=== PATIENT | female | born 1945 | race Hispanic/Latino ===

== ENCOUNTER 2017-09-22 15:53 | Inpatient (IN) | payer OTHER, BC ==
[2017-09-22 16:06] VITALS: BMI 50.3
[2017-09-22] MEDS ORDERED: Enoxaparin 30 mg Syringe SC SCH (16:15)
[2017-09-22] MEDS: Nystatin 100,000 Units/gm Topical Pow(15 gm) TOP SCH (17:59)
[2017-09-22] MEDS: Enoxaparin 30 mg Syringe SC SCH (18:00)
[2017-09-22] MEDS: ceFAZolin 1 gm in NS 1 GM/100 ML BAG IVPB SCH (21:23)
[2017-09-22] MEDS ORDERED: Pneumococcal 23-Valent Vaccine IM ONE (22:20)
[2017-09-23] MEDS: ceFAZolin 1 gm in NS 1 GM/100 ML BAG IVPB SCH (05:35)
[2017-09-23] MEDS: Enoxaparin 30 mg Syringe SC SCH ×2 (05:35→17:59)
[2017-09-23] MEDS: Pantoprazole 40 mg EC Tab PO SCH (05:36)
[2017-09-23 06:33] LABS: BASO # 0.03 K/mm3 (0.0-2.0); BASO % 0.7 % (0.0-3.0); EOS # 0.1 (0.0-0.7); EOS % 3.3 % (1.5-5.0); GRAN # 2.55 (1.4-6.5); GRAN % 60.1 % (50.0-68.0); HEMOGLOBIN 10.7 g/dL (12.0-16.0); LYMPH % 22.9 % (22.0-35.0); MEAN CELL VOLUME 99.2 fl (80.0-105.0); MEAN CORPUSCULAR HGB CONC 30.2 g/dl (31.0-37.0); MEAN PLATELET VOLUME 10.3 fl (7.0-11.0); MONO # 0.6 (0.1-0.6); RBC 3.57 10^6/uL (3.5-6.1); RED CELL DISTRIBUTION WIDTH 15.3 % (11.5-14.5); WHITE BLOOD COUNT 4.2 10^3/ul (4.5-11.0)
[2017-09-23 07:15] LABS: ALB/GLOB RATIO 1.1 (1.1-1.8); ALBUMIN 2.8 g/dL (3.0-4.8); ALT/SGPT 17 U/L (7-56); AST/SGOT 19 U/L (14-36); BLOOD UREA NITROGEN 13 mg/dL (7-21); CALCIUM 8.3 mg/dL (8.4-10.5); GFR AFRICAN-AMERICAN > 60; GFR NON-AFRICAN AMERICAN > 60
[2017-09-23 07:29] LABS: INR 1.24 (0.93-1.08); PROTHROMBIN TIME 14.3 SECONDS (9.4-12.5)
--- NOTE | 2017-09-23 07:41 | CP.PCM.CON ---
History of Present Illness - History of Present Illness History of Present Illness: Awake, alert, lying in bed,no distress Reason for consultation: Continuity of care in TCU, admitted due to abdominal wound dehiscence post hysterectomy and found to have new onset atrial fibrillation, hypertension Brief History of present illness: A 72 year old female, obese who came in to the ER due to abdominal wound dehiscence post hysterectomy and found to have new onset atrial fibrillation. Patient had hysterectomy at [facility] on 09/06/17. On 09/16/17, harmony were removed. On 09/19/17, she came in to the ER due to bleeding at surgical wound and found to have wound dehiscence. Patient underwent wound debridement and closure at [facility]. Atrial fibrillation was controlled with IV cardizem then switch to oral cardizem and amiodarone. She was also started with Coumadin.Afib converted to normal sinus rhythm. History of hypertension.Transferred to TCU for reconditioning and rehab. Seen and examined by me and Dr. Bernabe Review of Systems - Constitutional Constitutional: As Per HPI - Cardiovascular Additional comments: denies chest pain, hypertension - Respiratory Additional comments: denies shortness of breath - Genitourinary Additional comments: denies problems - Neurological Additional comments: denies problems - Endocrine Endocrine: As Per HPI Past Patient History - Past Social History Smoking Status: Former Smoker - CARDIAC Hx Cardiac Disorders: Yes Hx Hypertension: Yes Hx Pacemaker: No Hx Peripheral Edema: Yes (ble +2 pitting legs and feet) Other/Comment: spider veins to feet - PULMONARY Hx Respiratory Disorders: No - NEUROLOGICAL Hx Neurological Disorder: No - HEENT Hx HEENT Problems: No - RENAL Hx Chronic Kidney Disease: No - ENDOCRINE/METABOLIC Hx Endocrine Disorders: No - HEMATOLOGICAL/ONCOLOGICAL Hx Blood Disorders: No - INTEGUMENTARY Hx Dermatological Problems: Yes Other/Comment: right lower abd wound dehiscence repaired today post surgical wound had hyst at [facility] 09/06/17, had harmony removed 09/16/17 , c/o bleeding started yesterday, to or for wound repair surgical dressing and abd binder in place - MUSCULOSKELETAL/RHEUMATOLOGICAL Hx Falls: No - GASTROINTESTINAL Hx Gastrointestinal Disorders: No - GENITOURINARY/GYNECOLOGICAL Hx Genitourinary Disorders: No Hx Reproductive Disorders: No - PSYCHIATRIC Hx Substance Use: No - SURGICAL HISTORY Hx Surgeries: Yes Hx Hysterectomy: Yes (7/3/18 [facility] Other/Comment: harmony removed from hyst that was done on 09/06/17, on 09/16/17, site started bleeding yesterday 09/18/17 repair of post surgical wound done today 09/19/17 - ANESTHESIA Hx Anesthesia Reactions: No Hx Malignant Hyperthermia: No Meds Allergies/Adverse Reactions: Allergies Allergy/AdvReac Type Severity Reaction Status Date / Time No Known Allergies Allergy Verified 09/22/17 16:07 - Medications Medications: Current Medications Acetaminophen (Tylenol 325mg Tab) 650 mg PO Q6H PRN PRN Reason: temp 101 Amiodarone HCl (Cordarone) 200 mg PO DAILY [facility] Diltiazem HCl (Cardizem Cd) 240 mg PO DAILY [facility] Diphenhydramine HCl (Benadryl) 25 mg PO HS PRN PRN Reason: Insomnia Docusate Sodium (Colace) 100 mg PO DAILY [facility] Enoxaparin Sodium (Lovenox) 30 mg SC 0600,1800 [facility] PRN Reason: Protocol Last Admin: 09/23/17 05:35 Dose: 30 mg Cefazolin Sodium (Ancef 1gm In Ns) 1 gm in 100 mls @ 100 mls/hr IVPB Q8 [facility] PRN Reason: Protocol Last Admin: 09/23/17 05:35 Dose: 100 mls/hr Ibuprofen (Motrin Tab) 600 mg PO Q6H PRN PRN Reason: abdominal pain Lisinopril (Zestril) 10 mg PO DAILY [facility] Nystatin (Nystop Topical Powder) 0 gm TOP BID [facility] Last Admin: 09/22/17 17:59 Dose: 1 applic Ondansetron HCl (Zofran Inj) 4 mg IVP Q6H PRN PRN Reason: Nausea/Vomiting Pantoprazole Sodium (Protonix Ec Tab) 40 mg PO 0600 [facility] Last Admin: 09/23/17 05:36 Dose: 40 mg Physical Exam - Constitutional Appears: No Acute Distress - Head Exam Head Exam: NORMOCEPHALIC - Eye Exam Eye Exam: Normal appearance - ENT Exam ENT Exam: Mucous Membranes Moist - Respiratory Exam Respiratory Exam: Clear to Auscultation Bilateral, NORMAL BREATHING PATTERN - Cardiovascular Exam Cardiovascular Exam: REGULAR RHYTHM, +S1, +S2 - GI/Abdominal Exam GI & Abdominal Exam: Normal Bowel Sounds, Soft Additional comments: abdominal dressing intact - Extremities Exam Additional comments: 2+ pedal edema - Neurological Exam Neurological exam: Alert, Oriented x3 - Psychiatric Exam Psychiatric exam: Normal Affect - Skin Skin Exam: Intact, Warm Results - Vital Signs Recent Vital Signs: Last Vital Signs Temp 98.2 F 09/22/17 22:11 Pulse 73 09/22/17 22:11 Resp 91 H 09/22/17 22:11 BP 144/59 L 09/22/17 22:11 Pulse Ox 91 L 09/22/17 16:00 - Labs Result Diagrams: 09/23/17 05:45 09/23/17 05:45 Labs: Laboratory Results - last 24 hr 09/23/17 09/23/17 09/23/17 05:45 05:45 06:30 WBC 4.2 L D RBC 3.57 Hgb 10.7 L Hct 35.4 L MCV 99.2 MCH 30.0 MCHC 30.2 L RDW 15.3 H Plt Count 261 MPV 10.3 Gran % 60.1 Lymph % (Auto) 22.9 [place] % (Auto) 13.0 H Eos % (Auto) 3.3 Baso % (Auto) 0.7 Gran # 2.55 Lymph # (Auto) 1.0 L [place] # (Auto) 0.6 Eos # (Auto) 0.1 Baso # (Auto) 0.03 PT 14.3 H INR 1.24 H Sodium 140 Potassium 4.3 Chloride 102 Carbon Dioxide 32 Anion Gap 10 BUN 13 Creatinine 0.6 L Est GFR ( Amer) > 60 Est GFR (Non-Af Amer) > 60 Random Glucose 102 Calcium 8.3 L Phosphorus 3.5 Magnesium 2.1 Total Bilirubin 0.4 AST 19 ALT 17 Alkaline Phosphatase 61 Total Protein 5.2 L Albumin 2.8 L Globulin 2.5 Albumin/Globulin Ratio 1.1 Assessment & Plan - Assessment and Plan (Free Text) Assessment: Brief History of present illness: A 72 year old female, obese who came in to the ER due to abdominal wound dehiscence post hysterectomy and found to have new onset atrial fibrillation. Patient had hysterectomy at [facility] on 09/06/17. On 09/16/17, harmony were removed. On 09/19/17, she came in to the ER due to bleeding at surgical wound and found to have wound dehiscence. Patient underwent wound debridement and closure at [facility]. Atrial fibrillation was controlled with IV cardizem then switch to oral cardizem and amiodarone. She was also started with Coumadin.Afib converted to normal sinus rhythm. History of hypertension.Transferred to TCU for reconditioning and rehab. Recent ECHO- normal LVEF 65% Plan: In TCU for reconditioning and physical therapy Cardiac status stable Blood pressure and heart rate stable Continue amiodarone and cardizem,lisinopril discontinued coumadin Repeat EKG to check cardiac rhythm, making sure remains normal sinus Continue current treatment Continue current medications Will follow up Plan and treatment discussed with Dr. Bernabe Thank you Dr. Arechiga for the opportunity in taking care of . Sumit Vidal
--- NOTE | 2017-09-23 08:44 | CP.PCM.PN ---
Subjective - Date & Time of Evaluation Date of Evaluation: 09/23/17 Time of Evaluation: 08:43 - Subjective Subjective: GENERAL SURGERY PROGRESS NOTE FOR DR. HAN Patient seen and examined at bedside this am in TCU. No acute events overnight. Pt continues to have mild pain at incision site. She is not wearing abdominal binders due to discomfort. Pt tolerating diet, passing gas, normal bowel function. Denies fevers, chills, chest pain, SOB, nausea, vomiting or diarrhea. Objective - Vital Signs/Intake and Output Vital Signs (last 24 hours): Temp Pulse Resp BP Pulse Ox 98.2 F 73 91 H 144/59 L 91 L 09/22/17 22:11 09/22/17 22:11 09/22/17 22:11 09/22/17 22:11 09/22/17 16:00 - Medications Medications: Current Medications Acetaminophen (Tylenol 325mg Tab) 650 mg PO Q6H PRN PRN Reason: temp 101 Amiodarone HCl (Cordarone) 200 mg PO DAILY [facility] Diltiazem HCl (Cardizem Cd) 240 mg PO DAILY [facility] Diphenhydramine HCl (Benadryl) 25 mg PO HS PRN PRN Reason: Insomnia Docusate Sodium (Colace) 100 mg PO DAILY [facility] Enoxaparin Sodium (Lovenox) 30 mg SC 0600,1800 [facility] PRN Reason: Protocol Last Admin: 09/23/17 05:35 Dose: 30 mg Cefazolin Sodium (Ancef 1gm In Ns) 1 gm in 100 mls @ 100 mls/hr IVPB Q8 [facility] PRN Reason: Protocol Last Admin: 09/23/17 05:35 Dose: 100 mls/hr Ibuprofen (Motrin Tab) 600 mg PO Q6H PRN PRN Reason: abdominal pain Lisinopril (Zestril) 10 mg PO DAILY [facility] Nystatin (Nystop Topical Powder) 0 gm TOP BID [facility] Last Admin: 09/22/17 17:59 Dose: 1 applic Ondansetron HCl (Zofran Inj) 4 mg IVP Q6H PRN PRN Reason: Nausea/Vomiting Pantoprazole Sodium (Protonix Ec Tab) 40 mg PO 0600 [facility] Last Admin: 09/23/17 05:36 Dose: 40 mg - Labs Labs: 09/23/17 05:45 09/23/17 05:45 PT 14.3 SECONDS (9.4-12.5) H 09/23/17 06:30 INR 1.24 (0.93-1.08) H 09/23/17 06:30 - Constitutional Appears: Well, Non-toxic, No Acute Distress - Head Exam Head Exam: NORMAL INSPECTION - ENT Exam ENT Exam: Mucous Membranes Moist - Respiratory Exam Respiratory Exam: NORMAL BREATHING PATTERN - Cardiovascular Exam Cardiovascular Exam: RRR - GI/Abdominal Exam GI & Abdominal Exam: Soft, Tenderness (mild tenderness to palpation around incision site). absent: Distended, Firm, Rigid, Rebound Additional comments: Mild erythema around incision site that's improved since hospital admission. Dressing saturated with malodorous serous fluid. Wound is well approximated. no signs of overt bleeding. - Extremities Exam Extremities Exam: Normal Inspection. absent: Calf Tenderness - Neurological Exam Neurological Exam: Alert, Awake, Oriented x3 - Psychiatric Exam Psychiatric exam: Normal Affect, Normal Mood - Skin Skin Exam: Normal Color, Warm Assessment and Plan - Assessment and Plan (Free Text) Assessment: 72 y/o F POD#4 s/p hysterectomy wound debridement and washout with primary closure Plan: - saul drain fell out - Repeat wound culture grew pseudomonas. Pt on abx per ID recs - CT abdomen w/ po contrast upon discharge. Monitor for wound dehiscence and infection/abscesses - continue PT in TCU, continue ID & surgical monitoring - encourage ambulation as tolerated with abdominal binders - continue DVT prophylaxis - continue incentive spirometry - discussed with Dr. Han
[2017-09-23] MEDS ORDERED: Barium Sulfate Susp 2.1% w/v, 2.0% w/w 450 mL Bottle PO ONE (08:53)
[2017-09-23] MEDS: diltiaZEM 240 mg/24 Hours CD Cap PO SCH (10:17)
[2017-09-23] MEDS: Nystatin 100,000 Units/gm Topical Pow(15 gm) TOP SCH ×2 (10:18→17:59)
--- NOTE | 2017-09-23 10:20 | CARD ---
APPROVED REPORT Date of service: 09/23/2017 EKG Measurement Heart [id number] <Conclusion> Normal sinus rhythm Normal ECG
[2017-09-23] MEDS: Silver Sulfadiazine 1% Cream (25 gm) TP SCH ×2 (11:15→11:21)
[2017-09-23] MEDS: Linezolid 600 mg in D5W 300 ml 600 MG/300 ML BAG IVPB SCH ×2 (13:29→21:01)
[2017-09-23] MEDS: Cefepime IV 2 gm in NS 2 GM/100 ML BAG IVPB SCH ×2 (13:30→21:02)
--- NOTE | 2017-09-23 14:10 | CP.PCM.CON ---
History of Present Illness - History of Present Illness History of Present Illness: 72 year old female with PMH of right breast papilloma, HTN, obesity with BMI 35 was initially admitted in [facility] because of hysterectomy surgical site skin and skin structure infection. Debridement was done and she was started on antibiotics. She is now transferred to [facility] for continued medical therapy and physical rehab. Infectious diseases consult is requested to continue her antibiotic therapy. She still has some pain in the surgical site but a little less, no fever or chills, no nausea or vomiting, no chest pain, no SOB, no cough or rhinorrhea, no diarrhea, no dysuria. Review of Systems - Review of Systems All systems: reviewed and no additional remarkable complaints except (as per HPI ) Past Patient History - Past Social History Smoking Status: Former Smoker - CARDIAC Hx Cardiac Disorders: Yes Hx Hypertension: Yes Hx Pacemaker: No Hx Peripheral Edema: Yes (ble +2 pitting legs and feet) Other/Comment: spider veins to feet - PULMONARY Hx Respiratory Disorders: No - NEUROLOGICAL Hx Neurological Disorder: No - HEENT Hx HEENT Problems: No - RENAL Hx Chronic Kidney Disease: No - ENDOCRINE/METABOLIC Hx Endocrine Disorders: No - HEMATOLOGICAL/ONCOLOGICAL Hx Blood Disorders: No - INTEGUMENTARY Hx Dermatological Problems: Yes Other/Comment: right lower abd wound dehiscence repaired today post surgical wound had hyst at [facility] 09/06/17, had harmony removed 09/16/17 , c/o bleeding started yesterday, to or for wound repair surgical dressing and abd binder in place - MUSCULOSKELETAL/RHEUMATOLOGICAL Hx Falls: No - GASTROINTESTINAL Hx Gastrointestinal Disorders: No - GENITOURINARY/GYNECOLOGICAL Hx Genitourinary Disorders: No Hx Reproductive Disorders: No - PSYCHIATRIC Hx Substance Use: No - SURGICAL HISTORY Hx Surgeries: Yes Hx Hysterectomy: Yes (09/06/17 [facility]) Other/Comment: harmony removed from hyst that was done on 09/06/17, on 09/16/17, site started bleeding yesterday 09/18/17 repair of post surgical wound done today 09/19/17 - ANESTHESIA Hx Anesthesia Reactions: No Hx Malignant Hyperthermia: No Meds Allergies/Adverse Reactions: Allergies Allergy/AdvReac Type Severity Reaction Status Date / Time No Known Allergies Allergy Verified 09/22/17 16:07 - Medications Medications: Current Medications Acetaminophen (Tylenol 325mg Tab) 650 mg PO Q6H PRN PRN Reason: temp 101 Amiodarone HCl (Cordarone) 200 mg PO DAILY [facility] Diltiazem HCl (Cardizem Cd) 240 mg PO DAILY [facility] Diphenhydramine HCl (Benadryl) 25 mg PO HS PRN PRN Reason: Insomnia Docusate Sodium (Colace) 100 mg PO DAILY [facility] Enoxaparin Sodium (Lovenox) 30 mg SC 0600,1800 [facility] PRN Reason: Protocol Last Admin: 09/23/17 05:35 Dose: 30 mg Cefazolin Sodium (Ancef 1gm In Ns) 1 gm in 100 mls @ 100 mls/hr IVPB Q8 [facility] PRN Reason: Protocol Last Admin: 09/23/17 05:35 Dose: 100 mls/hr Ibuprofen (Motrin Tab) 600 mg PO Q6H PRN PRN Reason: abdominal pain Lisinopril (Zestril) 10 mg PO DAILY [facility] Nystatin (Nystop Topical Powder) 0 gm TOP BID [facility] Last Admin: 09/22/17 17:59 Dose: 1 applic Ondansetron HCl (Zofran Inj) 4 mg IVP Q6H PRN PRN Reason: Nausea/Vomiting Pantoprazole Sodium (Protonix Ec Tab) 40 mg PO 0600 [facility] Last Admin: 09/23/17 05:36 Dose: 40 mg Physical Exam - Constitutional Appears: Chronically Ill - Head Exam Head Exam: NORMAL INSPECTION - ENT Exam ENT Exam: Mucous Membranes Moist - Respiratory Exam Respiratory Exam: Decreased Breath Sounds - Cardiovascular Exam Cardiovascular Exam: +S1, +S2 - GI/Abdominal Exam GI & Abdominal Exam: Soft, Tenderness (mild, surgical site in the lower abdomen with dry dressings in place) Results - Vital Signs Recent Vital Signs: Last Vital Signs Temp 98.2 F 09/22/17 22:11 Pulse 73 09/22/17 22:11 Resp 91 H 09/22/17 22:11 BP 144/59 L 09/22/17 22:11 Pulse Ox 91 L 09/22/17 16:00 - Labs Result Diagrams: 09/23/17 05:45 09/23/17 05:45 Assessment & Plan - Assessment and Plan (Free Text) Plan: Assessment Consider surgical site skin and skin structure infection S/P debridement and closure of the surgical site in this patient S/P hysterectomy, initially grew MSSA and rivera-sensitive Proteus but is now also growing Pseudomonas right breast papilloma HTN obesity with BMI [address] Oscar - had some purulent material and wound edges are still erythematous - switched antibiotics to Zyvox and Cefepime and will monitor clinically
[2017-09-24] MEDS: Enoxaparin 30 mg Syringe SC SCH ×2 (05:22→17:39)
[2017-09-24] MEDS: Cefepime IV 2 gm in NS 2 GM/100 ML BAG IVPB SCH ×3 (05:22→21:19)
[2017-09-24 08:53] LABS: BASO # 0.02 K/mm3 (0.0-2.0); BASO % 0.5 % (0.0-3.0); EOS # 0.1 (0.0-0.7); EOS % 2.6 % (1.5-5.0); GRAN # 2.59 (1.4-6.5); GRAN % 60.7 % (50.0-68.0); HEMOGLOBIN 11.3 g/dL (12.0-16.0); LYMPH % 23.5 % (22.0-35.0); MEAN CELL VOLUME 96.8 fl (80.0-105.0); MEAN PLATELET VOLUME 10.2 fl (7.0-11.0); MONO # 0.5 (0.1-0.6); MONO % 12.7 % (1.0-6.0); RBC 3.77 10^6/uL (3.5-6.1); RED CELL DISTRIBUTION WIDTH 15.2 % (11.5-14.5); WHITE BLOOD COUNT 4.3 10^3/ul (4.5-11.0)
--- NOTE | 2017-09-24 08:57 | CP.PCM.PN ---
Subjective - Date & Time of Evaluation Date of Evaluation: 09/24/17 Time of Evaluation: 07:30 - Subjective Subjective: Patient seen and examined at bedside this AM. No adverse events overnight. Patient is anxious about the wound not healing and complains about some soreness but denies any fevers, chills, nausea or vomiting. Objective - Vital Signs/Intake and Output Vital Signs (last 24 hours): Temp Pulse Resp BP Pulse Ox 98.5 F 71 20 124/78 94 L 09/24/17 06:00 09/24/17 06:00 09/24/17 06:00 09/24/17 06:00 09/24/17 06:00 - Medications Medications: Current Medications Acetaminophen (Tylenol 325mg Tab) 650 mg PO Q6H PRN PRN Reason: temp 101 Amiodarone HCl (Cordarone) 200 mg PO DAILY [facility] Last Admin: 09/23/17 10:18 Dose: 200 mg Diltiazem HCl (Cardizem Cd) 240 mg PO DAILY [facility] Last Admin: 09/23/17 10:17 Dose: 240 mg Diphenhydramine HCl (Benadryl) 25 mg PO HS PRN PRN Reason: Insomnia Docusate Sodium (Colace) 100 mg PO DAILY [facility] Last Admin: 09/23/17 10:17 Dose: 100 mg Enoxaparin Sodium (Lovenox) 30 mg SC 0600,1800 [facility] PRN Reason: Protocol Last Admin: 09/24/17 05:22 Dose: 30 mg Linezolid (Zyvox 600mg/300ml D5w) 600 mg in 300 mls @ 200 mls/hr IVPB Q12 [facility] PRN Reason: Protocol Stop: 09/30/17 11:16 Last Admin: 09/23/17 21:01 Dose: 200 mls/hr Cefepime HCl (Maxipime 2gm) 2 gm in 100 mls @ 100 mls/hr IVPB Q8 [facility] PRN Reason: Protocol Stop: 09/28/17 14:01 Last Admin: 09/24/17 05:22 Dose: 100 mls/hr Ibuprofen (Motrin Tab) 600 mg PO Q6H PRN PRN Reason: abdominal pain Lisinopril (Zestril) 10 mg PO DAILY [facility] Last Admin: 09/23/17 10:18 Dose: 10 mg Nystatin (Nystop Topical Powder) 0 gm TOP BID [facility] Last Admin: 09/23/17 17:59 Dose: 1 applic Ondansetron HCl (Zofran Inj) 4 mg IVP Q6H PRN PRN Reason: Nausea/Vomiting Pantoprazole Sodium (Protonix Ec Tab) 40 mg PO 0600 [facility] Last Admin: 09/23/17 05:36 Dose: 40 mg Silver Sulfadiazine (Silvadene 1% 25 Gm) 0 gm TP DAILY [facility] Last Admin: 09/23/17 11:21 Dose: Not Given - Labs Labs: 09/23/17 05:45 09/23/17 05:45 PT 14.3 SECONDS (9.4-12.5) H 09/23/17 06:30 INR 1.24 (0.93-1.08) H 09/23/17 06:30 - Constitutional Appears: Well, Non-toxic, No Acute Distress - Head Exam Head Exam: ATRAUMATIC, NORMOCEPHALIC - Eye Exam Eye Exam: Normal appearance. absent: Conjunctival injection, Scleral icterus - ENT Exam ENT Exam: Mucous Membranes Moist, Normal Oropharynx - Respiratory Exam Respiratory Exam: NORMAL BREATHING PATTERN. absent: Accessory Muscle Use, Respiratory Distress - Cardiovascular Exam Cardiovascular Exam: RRR - GI/Abdominal Exam GI & Abdominal Exam: Soft, Tenderness (per-incisional). absent: Distended Additional comments: inision well approximated with retention sutures and harmony, saul removed yesterday, skin edges not well healed, moderate amount of thick serosanguinous fluid. - Extremities Exam Extremities Exam: Pedal Edema. absent: Calf Tenderness, Tenderness - Neurological Exam Neurological Exam: Alert, Awake, Oriented x3 - Psychiatric Exam Psychiatric exam: Anxious, Normal Affect - Skin Skin Exam: Dry, Normal Color, Warm Assessment and Plan - Assessment and Plan (Free Text) Assessment: 72F POD#5 s/p wash out and primary closure of hysterectomy surgical wound Plan: Continue IV antibiotics per ID recs Continue to trend CBC Continue to monitor wound closely Daily wound dressing changes with silvadene cream on the skin PRN pain medication Encourage ambulation will Discuss with Dr. Oscar,, further recs per him April Walsh, PGY2
[2017-09-24 09:03] LABS: INR 1.1 (0.93-1.08); PROTHROMBIN TIME 12.7 SECONDS (9.4-12.5)
[2017-09-24 09:06] LABS: ALB/GLOB RATIO 1.1 (1.1-1.8); ALBUMIN 3.2 g/dL (3.0-4.8); ALT/SGPT 25 U/L (7-56); AST/SGOT 30 U/L (14-36); BLOOD UREA NITROGEN 11 mg/dL (7-21); CALCIUM 8.5 mg/dL (8.4-10.5); GFR AFRICAN-AMERICAN > 60; GFR NON-AFRICAN AMERICAN > 60
--- NOTE | 2017-09-24 09:22 | PN ---
DATE: 09/24/2017 SUBJECTIVE: The patient is seen in room 303. She is awake and alert, answering questions appropriately. No nausea or vomiting. PHYSICAL EXAMINATION: VITAL SIGNS: On exam, temperature is 98, blood pressure is 120/70, respiratory rate of 18. HEENT: Examination of HEENT is unremarkable. NECK: Supple. LUNGS: Have decreased breath sounds. HEART: Normal S1, S2. ABDOMEN: Soft, nontender. LABORATORY DATA: Laboratory examination reveals a white count of 4.2, hemoglobin of 10, platelets 261, BUN of 13, creatinine of 0.6. ASSESSMENT AND PLAN: A 72-year-old morbidly obese female with a body mass index of 51 with a history of hypertension, morbid obesity, who recently had a hysterectomy in September, now is admitted with surgical site skin and skin structure infection, status post debridement, closure of the surgical site infection, status post hysterectomy. Initially had grown sensitive Staphylococcus aureus, also with pansensitive Proteus and Pseudomonas in the patient with right breast papilloma and hypertension. Review of the chart from the acute care, the patient was seen in the emergency room on 09/18/2017. Unable to find any imaging of this patient. I would recommend a CAT scan of the abdomen and pelvis. Review of the Proteus and Staphylococcus aureus from the abdominal wound infection site, Proteus is pansensitive as is the Staphylococcus aureus sensitive to oxacillin, STEFFANY of 0.5. A separate culture is growing Pseudomonas aeruginosa, which is also pansensitive. Case discussed with the surgical residents this morning. Ideally, the patient should have a CAT scan of the abdomen and pelvis. Currently on Zyvox and cefepime. Virgilio Spring MD
[2017-09-24] MEDS: Silver Sulfadiazine 1% Cream (25 gm) TP SCH (09:23)
[2017-09-24] MEDS: Nystatin 100,000 Units/gm Topical Pow(15 gm) TOP SCH ×2 (09:23→17:40)
[2017-09-24] MEDS: diltiaZEM 240 mg/24 Hours CD Cap PO SCH (09:24)
[2017-09-24] MEDS: Linezolid 600 mg in D5W 300 ml 600 MG/300 ML BAG IVPB SCH ×2 (09:24→21:19)
--- NOTE | 2017-09-24 09:48 | CP.PCM.PN ---
Subjective - Date & Time of Evaluation Date of Evaluation: 09/24/17 Time of Evaluation: 06:50 - Subjective Subjective: Sleeping but easily awaken, alert, lying in bed,no distress Reason for consultation: Continuity of care in TCU, admitted due to abdominal wound dehiscence post hysterectomy and found to have new onset atrial fibrillation, hypertension. Seen and examined by me and Dr. Bernabe Objective - Vital Signs/Intake and Output Vital Signs (last 24 hours): Temp Pulse Resp BP Pulse Ox 98.5 F 74 20 140/74 94 L 09/24/17 06:00 09/24/17 09:24 09/24/17 06:00 09/24/17 09:24 09/24/17 06:00 - Medications Medications: Current Medications Acetaminophen (Tylenol 325mg Tab) 650 mg PO Q6H PRN PRN Reason: temp 101 Amiodarone HCl (Cordarone) 200 mg PO DAILY [facility] Last Admin: 09/24/17 09:23 Dose: 200 mg Diltiazem HCl (Cardizem Cd) 240 mg PO DAILY [facility] Last Admin: 09/24/17 09:24 Dose: 240 mg Diphenhydramine HCl (Benadryl) 25 mg PO HS PRN PRN Reason: Insomnia Docusate Sodium (Colace) 100 mg PO DAILY [facility] Last Admin: 09/24/17 09:23 Dose: 100 mg Enoxaparin Sodium (Lovenox) 30 mg SC 0600,1800 RASHEED PRN Reason: Protocol Last Admin: 09/24/17 05:22 Dose: 30 mg Linezolid (Zyvox 600mg/300ml D5w) 600 mg in 300 mls @ 200 mls/hr IVPB Q12 RASHEED PRN Reason: Protocol Stop: 09/30/17 11:16 Last Admin: 09/24/17 09:24 Dose: 200 mls/hr Cefepime HCl (Maxipime 2gm) 2 gm in 100 mls @ 100 mls/hr IVPB Q8 RASHEED PRN Reason: Protocol Stop: 09/28/17 14:01 Last Admin: 09/24/17 05:22 Dose: 100 mls/hr Ibuprofen (Motrin Tab) 600 mg PO Q6H PRN PRN Reason: abdominal pain Last Admin: 09/24/17 09:22 Dose: 600 mg Lisinopril (Zestril) 10 mg PO DAILY [facility] Last Admin: 09/24/17 09:23 Dose: 10 mg Nystatin (Nystop Topical Powder) 0 gm TOP BID [facility] Last Admin: 09/24/17 09:23 Dose: 1 applic Ondansetron HCl (Zofran Inj) 4 mg IVP Q6H PRN PRN Reason: Nausea/Vomiting Pantoprazole Sodium (Protonix Ec Tab) 40 mg PO 0600 [facility] Last Admin: 09/23/17 05:36 Dose: 40 mg Silver Sulfadiazine (Silvadene 1% 25 Gm) 0 gm TP DAILY [facility] Last Admin: 09/24/17 09:23 Dose: Not Given - Labs Labs: 09/24/17 08:30 09/24/17 08:30 PT 12.7 SECONDS (9.4-12.5) H 09/24/17 08:30 INR 1.10 (0.93-1.08) H 09/24/17 08:30 APTT 31.0 Seconds (25.1-36.5) 09/24/17 08:30 - Constitutional Appears: No Acute Distress - Head Exam Head Exam: NORMOCEPHALIC - Eye Exam Eye Exam: Normal appearance - ENT Exam ENT Exam: Mucous Membranes Moist - Respiratory Exam Respiratory Exam: Clear to Ausculation Bilateral, NORMAL BREATHING PATTERN - Cardiovascular Exam Cardiovascular Exam: +S1, +S2 - GI/Abdominal Exam GI & Abdominal Exam: Soft, Normal Bowel Sounds Additional comments: abdominal dressing intact - Neurological Exam Neurological Exam: Alert, Awake, Oriented x3 - Psychiatric Exam Psychiatric exam: Normal Affect - Skin Skin Exam: Dry, Warm Assessment and Plan - Assessment and Plan (Free Text) Assessment: A 72 year old female, obese who came in to the ER due to abdominal wound dehiscence post hysterectomy and found to have new onset atrial fibrillation. Patient had hysterectomy at [facility] on 09/06/17. On 09/16/17, harmony were removed. On 09/19/17, she came in to the ER due to bleeding at surgical wound and found to have wound dehiscence. Patient underwent wound debridement and closure at [facility]. Atrial fibrillation was controlled with IV cardizem then switch to oral cardizem and amiodarone. She was also started with Coumadin.Afib converted to normal sinus rhythm. History of hypertension.Transferred to TCU for reconditioning and rehab. Recent ECHO- normal LVEF 65% Plan: EKG 12 lead remained on normal sinus rhythm TCU for reconditioning and physical therapy Cardiac status stable Blood pressure and heart rate stable Continue amiodarone and cardizem,lisinopril On IV antibiotics. ID on consult (MSSA and pseudomonas-wound) Continue current treatment Continue current medications Physical therapy Will follow up Plan and treatment discussed with Dr. Srinivasa Mckeon
--- NOTE | 2017-09-24 10:57 | CP.PCM.PN ---
Subjective - Date & Time of Evaluation Date of Evaluation: 09/24/17 Time of Evaluation: 09:40 - Subjective Subjective: OOB in chair, NAD, denies chest pain, no SOB Objective - Vital Signs/Intake and Output Vital Signs (last 24 hours): Temp Pulse Resp BP Pulse Ox 98.5 F 74 20 140/74 94 L 09/24/17 06:00 09/24/17 09:24 09/24/17 06:00 09/24/17 09:24 09/24/17 06:00 - Medications Medications: Current Medications Acetaminophen (Tylenol 325mg Tab) 650 mg PO Q6H PRN PRN Reason: temp 101 Amiodarone HCl (Cordarone) 200 mg PO DAILY [facility] Last Admin: 09/24/17 09:23 Dose: 200 mg Diltiazem HCl (Cardizem Cd) 240 mg PO DAILY [facility] Last Admin: 09/24/17 09:24 Dose: 240 mg Diphenhydramine HCl (Benadryl) 25 mg PO HS PRN PRN Reason: Insomnia Docusate Sodium (Colace) 100 mg PO DAILY [facility] Last Admin: 09/24/17 09:23 Dose: 100 mg Enoxaparin Sodium (Lovenox) 30 mg SC 0600,1800 RASHEED PRN Reason: Protocol Last Admin: 09/24/17 05:22 Dose: 30 mg Linezolid (Zyvox 600mg/300ml D5w) 600 mg in 300 mls @ 200 mls/hr IVPB Q12 RASHEED PRN Reason: Protocol Stop: 09/30/17 11:16 Last Admin: 09/24/17 09:24 Dose: 200 mls/hr Cefepime HCl (Maxipime 2gm) 2 gm in 100 mls @ 100 mls/hr IVPB Q8 RASHEED PRN Reason: Protocol Stop: 09/28/17 14:01 Last Admin: 09/24/17 05:22 Dose: 100 mls/hr Ibuprofen (Motrin Tab) 600 mg PO Q6H PRN PRN Reason: abdominal pain Last Admin: 09/24/17 09:22 Dose: 600 mg Lisinopril (Zestril) 10 mg PO DAILY [facility] Last Admin: 09/24/17 09:23 Dose: 10 mg Nystatin (Nystop Topical Powder) 0 gm TOP BID [facility] Last Admin: 09/24/17 09:23 Dose: 1 applic Ondansetron HCl (Zofran Inj) 4 mg IVP Q6H PRN PRN Reason: Nausea/Vomiting Pantoprazole Sodium (Protonix Ec Tab) 40 mg PO 0600 [facility] Last Admin: 09/23/17 05:36 Dose: 40 mg Silver Sulfadiazine (Silvadene 1% 25 Gm) 0 gm TP DAILY [facility] Last Admin: 09/24/17 09:23 Dose: Not Given - Labs Labs: 09/24/17 08:30 09/24/17 08:30 PT 12.7 SECONDS (9.4-12.5) H 09/24/17 08:30 INR 1.10 (0.93-1.08) H 09/24/17 08:30 APTT 31.0 Seconds (25.1-36.5) 09/24/17 08:30 - Respiratory Exam Respiratory Exam: Clear to Ausculation Bilateral, NORMAL BREATHING PATTERN - Cardiovascular Exam Cardiovascular Exam: Irregular Rhythm - GI/Abdominal Exam GI & Abdominal Exam: Normal Bowel Sounds Additional comments: wound dressings intact - Extremities Exam Extremities Exam: Normal Inspection - Neurological Exam Neurological Exam: Alert, Awake - Skin Skin Exam: Dry, Warm Assessment and Plan (1) New onset atrial fibrillation Status: Chronic (2) Dehiscence of operative wound Status: Chronic - Assessment and Plan (Free Text) Plan: continue wound care, IV Abx, ID/surgical/cardiology follow-up
[2017-09-25] MEDS: Pantoprazole 40 mg EC Tab PO SCH (05:29)
[2017-09-25] MEDS: Enoxaparin 30 mg Syringe SC SCH ×2 (05:30→17:46)
[2017-09-25] MEDS: Cefepime IV 2 gm in NS 2 GM/100 ML BAG IVPB SCH ×3 (05:30→21:15)
--- NOTE | 2017-09-25 07:30 | CP.PCM.PN ---
Subjective - Date & Time of Evaluation Date of Evaluation: 09/25/17 Time of Evaluation: 06:35 - Subjective Subjective: Awake, alert, lying in bed,no distress, difficulty peripheral IV insertion Reason for consultation: Continuity of care in TCU, admitted due to abdominal wound dehiscence post hysterectomy and found to have new onset atrial fibrillation, hypertension. Seen and examined by me and Dr. Bernabe Objective - Vital Signs/Intake and Output Vital Signs (last 24 hours): Temp Pulse Resp BP Pulse Ox 98.4 F 74 20 140/74 94 L 09/24/17 10:00 09/24/17 10:00 09/24/17 10:00 09/24/17 10:00 09/24/17 10:00 Intake and Output: 09/25/17 09/25/17 06:59 18:59 Intake Total 360 Balance 360 - Medications Medications: Current Medications Acetaminophen (Tylenol 325mg Tab) 650 mg PO Q6H PRN PRN Reason: temp 101 Amiodarone HCl (Cordarone) 200 mg PO DAILY [facility] Last Admin: 09/24/17 09:23 Dose: 200 mg Diltiazem HCl (Cardizem Cd) 240 mg PO DAILY [facility] Last Admin: 09/24/17 09:24 Dose: 240 mg Diphenhydramine HCl (Benadryl) 25 mg PO HS PRN PRN Reason: Insomnia Docusate Sodium (Colace) 100 mg PO DAILY [facility] Last Admin: 09/24/17 09:23 Dose: 100 mg Enoxaparin Sodium (Lovenox) 30 mg SC 0600,1800 RASHEED PRN Reason: Protocol Last Admin: 09/25/17 05:30 Dose: 30 mg Linezolid (Zyvox 600mg/300ml D5w) 600 mg in 300 mls @ 200 mls/hr IVPB Q12 RASHEED PRN Reason: Protocol Stop: 09/30/17 11:16 Last Admin: 09/24/17 21:19 Dose: 200 mls/hr Cefepime HCl (Maxipime 2gm) 2 gm in 100 mls @ 100 mls/hr IVPB Q8 ARSHEED PRN Reason: Protocol Stop: 09/28/17 14:01 Last Admin: 09/25/17 05:30 Dose: 100 mls/hr Ibuprofen (Motrin Tab) 600 mg PO Q6H PRN PRN Reason: abdominal pain Last Admin: 09/24/17 09:22 Dose: 600 mg Lisinopril (Zestril) 10 mg PO DAILY [facility] Last Admin: 09/24/17 09:23 Dose: 10 mg Nystatin (Nystop Topical Powder) 0 gm TOP BID [facility] Last Admin: 09/24/17 17:40 Dose: 1 applic Ondansetron HCl (Zofran Inj) 4 mg IVP Q6H PRN PRN Reason: Nausea/Vomiting Pantoprazole Sodium (Protonix Ec Tab) 40 mg PO 0600 [facility] Last Admin: 09/25/17 05:29 Dose: 40 mg Silver Sulfadiazine (Silvadene 1% 25 Gm) 0 gm TP DAILY [facility] Last Admin: 09/24/17 09:23 Dose: Not Given - Labs Labs: 09/24/17 08:30 09/24/17 08:30 PT 12.7 SECONDS (9.4-12.5) H 09/24/17 08:30 INR 1.10 (0.93-1.08) H 09/24/17 08:30 APTT 31.0 Seconds (25.1-36.5) 09/24/17 08:30 - Constitutional Appears: No Acute Distress - Head Exam Head Exam: NORMOCEPHALIC - Eye Exam Eye Exam: Normal appearance - ENT Exam ENT Exam: Mucous Membranes Moist - Respiratory Exam Respiratory Exam: Clear to Ausculation Bilateral, NORMAL BREATHING PATTERN - Cardiovascular Exam Cardiovascular Exam: REGULAR RHYTHM, +S1, +S2 - GI/Abdominal Exam GI & Abdominal Exam: Soft, Normal Bowel Sounds Additional comments: abdominal dressing dry and intact - Extremities Exam Extremities Exam: Normal Capillary Refill - Neurological Exam Neurological Exam: Alert, Awake, Oriented x3 - Psychiatric Exam Psychiatric exam: Normal Affect - Skin Skin Exam: Dry, Warm Assessment and Plan - Assessment and Plan (Free Text) Assessment: A 72 year old female, obese who came in to the ER due to abdominal wound dehiscence post hysterectomy and found to have new onset atrial fibrillation. Patient had hysterectomy at [facility] on 09/06/17. On 09/16/17, harmony were removed. On 09/19/17, she came in to the ER due to bleeding at surgical wound and found to have wound dehiscence. Patient underwent wound debridement and closure at [facility]. Atrial fibrillation was controlled with IV cardizem then switch to oral cardizem and amiodarone. She was also started with Coumadin.Afib converted to normal sinus rhythm. History of hypertension.Transferred to TCU for reconditioning and rehab. Recent ECHO- normal LVEF 65%, MSSA and pseudomonas-wound, on IV antibiotics/ID consult Plan: IV infiltrated yesterday, hard stick,stuck several times and able to insert g#24 angiocath. Needed PICC to continue IV antibiotics Cardiac status stable Blood pressure and heart rate stable Continue amiodarone and cardizem,lisinopril On IV antibiotics. ID on consult (MSSA and pseudomonas-wound) Continue current treatment Continue current medications Physical therapy Will follow up Plan and treatment discussed with Dr. Bernabe
--- NOTE | 2017-09-25 08:55 | CP.PCM.PN ---
Subjective - Date & Time of Evaluation Date of Evaluation: 09/25/17 (n) Time of Evaluation: 08:13 - Subjective Subjective: General surgery progress note for Dr. Oscar Patient seen and examined this morning at bedside. She is still experiencing soreness around the wound but denies any n/v/f/c, blood in her stool, changes in stool, new abdominal pain, vaginal discharge, or dysuria. Her pain has been well controlled and she is tolerating her diet well. Objective - Vital Signs/Intake and Output Vital Signs (last 24 hours): Temp Pulse Resp BP Pulse Ox 98.4 F 74 20 140/74 94 L 09/24/17 10:00 09/24/17 10:00 09/24/17 10:00 09/24/17 10:00 09/24/17 10:00 Intake and Output: 09/25/17 09/25/17 06:59 18:59 Intake Total 360 Balance 360 - Medications Medications: Current Medications Acetaminophen (Tylenol 325mg Tab) 650 mg PO Q6H PRN PRN Reason: temp 101 Amiodarone HCl (Cordarone) 200 mg PO DAILY [facility] Last Admin: 09/24/17 09:23 Dose: 200 mg Diltiazem HCl (Cardizem Cd) 240 mg PO DAILY [facility] Last Admin: 09/24/17 09:24 Dose: 240 mg Diphenhydramine HCl (Benadryl) 25 mg PO HS PRN PRN Reason: Insomnia Docusate Sodium (Colace) 100 mg PO DAILY [facility] Last Admin: 09/24/17 09:23 Dose: 100 mg Enoxaparin Sodium (Lovenox) 30 mg SC 0600,1800 RASHEED PRN Reason: Protocol Last Admin: 09/25/17 05:30 Dose: 30 mg Linezolid (Zyvox 600mg/300ml D5w) 600 mg in 300 mls @ 200 mls/hr IVPB Q12 RASHEED PRN Reason: Protocol Stop: 09/30/17 11:16 Last Admin: 09/24/17 21:19 Dose: 200 mls/hr Cefepime HCl (Maxipime 2gm) 2 gm in 100 mls @ 100 mls/hr IVPB Q8 RASHEED PRN Reason: Protocol Stop: 09/28/17 14:01 Last Admin: 09/25/17 05:30 Dose: 100 mls/hr Ibuprofen (Motrin Tab) 600 mg PO Q6H PRN PRN Reason: abdominal pain Last Admin: 09/24/17 09:22 Dose: 600 mg Lisinopril (Zestril) 10 mg PO DAILY [facility] Last Admin: 09/24/17 09:23 Dose: 10 mg Nystatin (Nystop Topical Powder) 0 gm TOP BID [facility] Last Admin: 09/24/17 17:40 Dose: 1 applic Ondansetron HCl (Zofran Inj) 4 mg IVP Q6H PRN PRN Reason: Nausea/Vomiting Pantoprazole Sodium (Protonix Ec Tab) 40 mg PO 0600 [facility] Last Admin: 09/25/17 05:29 Dose: 40 mg Silver Sulfadiazine (Silvadene 1% 25 Gm) 0 gm TP DAILY [facility] Last Admin: 09/24/17 09:23 Dose: Not Given - Labs Labs: 09/24/17 08:30 09/24/17 08:30 PT 12.7 SECONDS (9.4-12.5) H 09/24/17 08:30 INR 1.10 (0.93-1.08) H 09/24/17 08:30 APTT 31.0 Seconds (25.1-36.5) 09/24/17 08:30 - Constitutional Appears: Well, Non-toxic, No Acute Distress - Head Exam Head Exam: ATRAUMATIC, NORMOCEPHALIC - ENT Exam ENT Exam: Mucous Membranes Moist - Respiratory Exam Respiratory Exam: NORMAL BREATHING PATTERN - GI/Abdominal Exam GI & Abdominal Exam: Soft, Tenderness. absent: Distended, Firm, Guarding, Rigid , Rebound Additional comments: Appropriate tenderness over the incision site with dressing change - Extremities Exam Extremities Exam: Pedal Edema. absent: Calf Tenderness, Tenderness - Neurological Exam Neurological Exam: Alert, Awake, Normal Gait, Oriented x3 - Psychiatric Exam Psychiatric exam: Anxious, Normal Affect, Normal Mood - Skin Skin Exam: Dry, Erythema, Warm Additional comments: Abdominal incision dressing was taken down, less purulent drainage was seen than the previous day, the foul odor of the wound has decreased, erythema surrounding the wound is receding, wound is still draining fluid, retention sutures in place Assessment and Plan - Assessment and Plan (Free Text) Assessment: 72 yr old female s/p hysterectomy 09/06 with wound dehiscence on 09/18, washout and closure in OR 09/19 with cx positive for Proteus Mirabilis, Staphylococcus Aureus, and Pseudomonas Plan: - continue abx per ID recs - continue f/u of afib per cards recs - continue daily dressing changes with silvadene - continue to encourage ambulation - CT abd and pelvis with oral contrast to be done today will follow up results - will discuss plan with Dr. Oscar, all further recs per him Zayda Morley, PGY 1
--- NOTE | 2017-09-25 10:12 | CP.PCM.PN ---
Subjective - Date & Time of Evaluation Date of Evaluation: 09/25/17 Time of Evaluation: 09:30 - Subjective Subjective: OOB in chair, NAD Objective - Vital Signs/Intake and Output Vital Signs (last 24 hours): Temp Pulse Resp BP Pulse Ox 98.4 F 74 20 140/74 94 L 09/24/17 10:00 09/24/17 10:00 09/24/17 10:00 09/24/17 10:00 09/24/17 10:00 Intake and Output: 09/25/17 09/25/17 06:59 18:59 Intake Total 360 Balance 360 - Medications Medications: Current Medications Acetaminophen (Tylenol 325mg Tab) 650 mg PO Q6H PRN PRN Reason: temp 101 Amiodarone HCl (Cordarone) 200 mg PO DAILY [facility] Last Admin: 09/24/17 09:23 Dose: 200 mg Diltiazem HCl (Cardizem Cd) 240 mg PO DAILY [facility] Last Admin: 09/24/17 09:24 Dose: 240 mg Diphenhydramine HCl (Benadryl) 25 mg PO HS PRN PRN Reason: Insomnia Docusate Sodium (Colace) 100 mg PO DAILY [facility] Last Admin: 09/24/17 09:23 Dose: 100 mg Enoxaparin Sodium (Lovenox) 30 mg SC 0600,1800 RASHEED PRN Reason: Protocol Last Admin: 09/25/17 05:30 Dose: 30 mg Linezolid (Zyvox 600mg/300ml D5w) 600 mg in 300 mls @ 200 mls/hr IVPB Q12 RASHEED PRN Reason: Protocol Stop: 09/30/17 11:16 Last Admin: 09/24/17 21:19 Dose: 200 mls/hr Cefepime HCl (Maxipime 2gm) 2 gm in 100 mls @ 100 mls/hr IVPB Q8 RASHEED PRN Reason: Protocol Stop: 09/28/17 14:01 Last Admin: 09/25/17 05:30 Dose: 100 mls/hr Ibuprofen (Motrin Tab) 600 mg PO Q6H PRN PRN Reason: abdominal pain Last Admin: 09/24/17 09:22 Dose: 600 mg Lisinopril (Zestril) 10 mg PO DAILY [facility] Last Admin: 09/24/17 09:23 Dose: 10 mg Nystatin (Nystop Topical Powder) 0 gm TOP BID [facility] Last Admin: 09/24/17 17:40 Dose: 1 applic Ondansetron HCl (Zofran Inj) 4 mg IVP Q6H PRN PRN Reason: Nausea/Vomiting Pantoprazole Sodium (Protonix Ec Tab) 40 mg PO 0600 [facility] Last Admin: 09/25/17 05:29 Dose: 40 mg Silver Sulfadiazine (Silvadene 1% 25 Gm) 0 gm TP DAILY [facility] Last Admin: 09/24/17 09:23 Dose: Not Given - Labs Labs: 09/24/17 08:30 09/24/17 08:30 PT 12.7 SECONDS (9.4-12.5) H 09/24/17 08:30 INR 1.10 (0.93-1.08) H 09/24/17 08:30 APTT 31.0 Seconds (25.1-36.5) 09/24/17 08:30 - Respiratory Exam Respiratory Exam: Clear to Ausculation Bilateral, NORMAL BREATHING PATTERN - Cardiovascular Exam Cardiovascular Exam: REGULAR RHYTHM - GI/Abdominal Exam GI & Abdominal Exam: Soft, Normal Bowel Sounds Additional comments: abd wound dressing clean/intact - Neurological Exam Neurological Exam: Alert, Awake - Skin Skin Exam: Dry, Warm Assessment and Plan (1) New onset atrial fibrillation Status: Chronic (2) Dehiscence of operative wound Status: Chronic - Assessment and Plan (Free Text) Plan: continue present tx/Dr. Arechiga to resume care of patient in am
[2017-09-25] MEDS: diltiaZEM 240 mg/24 Hours CD Cap PO SCH (10:23)
[2017-09-25] MEDS: Linezolid 600 mg in D5W 300 ml 600 MG/300 ML BAG IVPB SCH ×2 (11:07→21:15)
[2017-09-25] MEDS: Nystatin 100,000 Units/gm Topical Pow(15 gm) TOP SCH ×2 (11:08→17:46)
[2017-09-25] MEDS: Silver Sulfadiazine 1% Cream (25 gm) TP SCH (11:08)
--- NOTE | 2017-09-25 12:22 | CARD ---
APPROVED REPORT Date of service: 09/25/2017 EKG Measurement Heart [id number] <Conclusion> Normal sinus rhythm Normal ECG
--- NOTE | 2017-09-25 14:19 | PN ---
DATE: 09/25/2017 SUBJECTIVE: The patient is seen earlier 303. The patient has been doing well, tolerating the antibiotics. No nausea or vomiting. OBJECTIVE: VITAL SIGNS: Blood pressure is 130/80, respiratory rate of 16. HEENT: Examination is unremarkable. NECK: Supple. LUNGS: Have decreased breath sounds. HEART: Normal S1, S2. ABDOMEN: Soft, nontender. DATA: Laboratory examination reveals the patient's white count of 4.3, hemoglobin 11, platelets of 253. Coagulation is noted and BUN of 11, creatinine 0.7. ASSESSMENT AND PLAN: This is a 72-year-old female seen earlier this morning in room 303 with morbid obesity, body mass index of 51, history of hypertension, recent hysterectomy in 09/2017 was admitted with surgical site skin and skin structure infection, status post debridement and closure of the surgical site and sensitive Staph aureus, pansensitive Proteus and Pseudomonas. Currently, on Zyvox and cefepime. The patient is tolerating antibiotics well. The patient is scheduled for a CT scan of the abdomen and pelvis today, I am waiting for results and we will make further recommendations and local wound care. We will follow closely with you. Virgilio Spring MD
[2017-09-26] MEDS: Pantoprazole 40 mg EC Tab PO SCH (05:20)
[2017-09-26] MEDS: Cefepime IV 2 gm in NS 2 GM/100 ML BAG IVPB SCH ×3 (05:20→21:11)
[2017-09-26] MEDS: Enoxaparin 30 mg Syringe SC SCH ×2 (05:20→17:46)
--- NOTE | 2017-09-26 06:36 | CP.PCM.PN ---
Subjective - Date & Time of Evaluation Date of Evaluation: 09/26/17 Time of Evaluation: 06:10 - Subjective Subjective: Awake, alert, lying in bed,no distress, difficulty peripheral IV insertion Reason for consultation: Continuity of care in TCU, admitted due to abdominal wound dehiscence post hysterectomy and found to have new onset atrial fibrillation, hypertension. Seen and examined by me and Dr. Bernabe Objective - Vital Signs/Intake and Output Vital Signs (last 24 hours): Temp Pulse Resp BP Pulse Ox 97.8 F 71 18 157/80 H 95 09/26/17 06:00 09/26/17 06:00 09/26/17 06:00 09/26/17 06:00 09/26/17 06:00 Intake and Output: 09/25/17 09/26/17 18:59 06:59 Intake Total 320 Balance 320 - Medications Medications: Current Medications Acetaminophen (Tylenol 325mg Tab) 650 mg PO Q6H PRN PRN Reason: temp 101 Amiodarone HCl (Cordarone) 200 mg PO DAILY [facility] Last Admin: 09/25/17 10:23 Dose: 200 mg Diltiazem HCl (Cardizem Cd) 240 mg PO DAILY [facility] Last Admin: 09/25/17 10:23 Dose: 240 mg Diphenhydramine HCl (Benadryl) 25 mg PO HS PRN PRN Reason: Insomnia Last Admin: 09/26/17 02:54 Dose: 25 mg Docusate Sodium (Colace) 100 mg PO DAILY [facility] Last Admin: 09/25/17 10:31 Dose: Not Given Enoxaparin Sodium (Lovenox) 30 mg SC 0600,1800 RASHEED PRN Reason: Protocol Last Admin: 09/26/17 05:20 Dose: 30 mg Linezolid (Zyvox 600mg/300ml D5w) 600 mg in 300 mls @ 200 mls/hr IVPB Q12 RASHEED PRN Reason: Protocol Stop: 09/30/17 11:16 Last Admin: 09/25/17 21:15 Dose: 200 mls/hr Cefepime HCl (Maxipime 2gm) 2 gm in 100 mls @ 100 mls/hr IVPB Q8 RASHEED PRN Reason: Protocol Stop: 09/28/17 14:01 Last Admin: 09/26/17 05:20 Dose: 100 mls/hr Ibuprofen (Motrin Tab) 600 mg PO Q6H PRN PRN Reason: abdominal pain Last Admin: 09/25/17 10:23 Dose: 600 mg Lisinopril (Zestril) 10 mg PO DAILY [facility] Last Admin: 09/25/17 10:23 Dose: 10 mg Nystatin (Nystop Topical Powder) 0 gm TOP BID [facility] Last Admin: 09/25/17 17:46 Dose: 1 applic Ondansetron HCl (Zofran Inj) 4 mg IVP Q6H PRN PRN Reason: Nausea/Vomiting Pantoprazole Sodium (Protonix Ec Tab) 40 mg PO 0600 [facility] Last Admin: 09/26/17 05:20 Dose: 40 mg Silver Sulfadiazine (Silvadene 1% 25 Gm) 0 gm TP DAILY [facility] Last Admin: 09/25/17 11:08 Dose: Not Given - Labs Labs: 09/24/17 08:30 09/24/17 08:30 PT 12.7 SECONDS (9.4-12.5) H 09/24/17 08:30 INR 1.10 (0.93-1.08) H 09/24/17 08:30 APTT 31.0 Seconds (25.1-36.5) 09/24/17 08:30 - Constitutional Appears: No Acute Distress - ENT Exam ENT Exam: Mucous Membranes Moist - Respiratory Exam Respiratory Exam: Clear to Ausculation Bilateral, NORMAL BREATHING PATTERN - Cardiovascular Exam Cardiovascular Exam: +S1, +S2 - GI/Abdominal Exam GI & Abdominal Exam: Soft, Normal Bowel Sounds Additional comments: abdominal dressing intact - Neurological Exam Neurological Exam: Alert, Awake, Oriented x3 - Psychiatric Exam Psychiatric exam: Normal Affect - Skin Skin Exam: Dry, Warm Assessment and Plan - Assessment and Plan (Free Text) Assessment: A 72 year old female, obese who came in to the ER due to abdominal wound dehiscence post hysterectomy and found to have new onset atrial fibrillation. Patient had hysterectomy at [facility] on 09/06/17. On 09/16/17, harmony were removed. On 09/19/17, she came in to the ER due to bleeding at surgical wound and found to have wound dehiscence. Patient underwent wound debridement and closure [place] [facility] [place] Atrial fibrillation was controlled with IV cardizem then switch to oral cardizem and amiodarone. She was also started with Coumadin.Afib converted to normal sinus rhythm. History of hypertension.Transferred to TCU for reconditioning and rehab. Recent ECHO- normal LVEF 65%, MSSA and pseudomonas-wound, on IV antibiotics/ID consult Plan: Afebrile, no distress Physical therapy For PICC insertion Cardiac status stable Blood pressure and heart rate stable EKG 12 lead- Normal sinus rhythm Continue Amiodarone and Cardizem On IV antibiotics. ID on consult (MSSA and pseudomonas-wound) Continue current treatment Continue current medications Physical therapy OOB to chair Will follow up Plan and treatment discussed with Dr. Bernabe
[2017-09-26 07:13] LABS: BASO # 0.02 K/mm3 (0.0-2.0); BASO % 0.5 % (0.0-3.0); EOS # 0.1 (0.0-0.7); EOS % 2.7 % (1.5-5.0); GRAN # 2.07 (1.4-6.5); GRAN % 56.1 % (50.0-68.0); HEMOGLOBIN 11.3 g/dL (12.0-16.0); LYMPH % 26.3 % (22.0-35.0); MEAN CELL VOLUME 97.3 fl (80.0-105.0); MEAN CORPUSCULAR HEMOGLOBIN 30.2 pg (25.0-35.0); MEAN PLATELET VOLUME 10.3 fl (7.0-11.0); MONO # 0.5 (0.1-0.6); MONO % 14.4 % (1.0-6.0); RBC 3.74 10^6/uL (3.5-6.1); RED CELL DISTRIBUTION WIDTH 15.3 % (11.5-14.5); WHITE BLOOD COUNT 3.7 10^3/ul (4.5-11.0)
[2017-09-26 07:20] LABS: BLOOD UREA NITROGEN 10 mg/dL (7-21); CALCIUM 8.7 mg/dL (8.4-10.5); GFR AFRICAN-AMERICAN > 60; GFR NON-AFRICAN AMERICAN > 60
--- NOTE | 2017-09-26 08:18 | HP ---
CHIEF COMPLAINT: Deconditioning, wound care. HISTORY OF PRESENT ILLNESS: Ms. Sumit Drake is a 72-year-old female with a history of right breast papilloma, hypertension, obesity, was admitted actually on the acute side of [facility] because of hysterectomy surgical site skin and skin structure infected. Debridement was done by Dr. Oscar, and patient was started on antibiotics. Now, we transferred the patient to TCU for continuity of care, to complete the antibiotics, do physical therapy. No nausea or vomiting. No hematuria or hematochezia. No swelling of the legs. No chest pain, no palpitation. No headache, no dizziness. PAST MEDICAL HISTORY: Hypertension; peripheral edema, pitting too; right lower abdominal wound debridement, repair, and surgical wound that was done in [facility], had harmony removed on 09/16/2017, complaining of bleeding starting yesterday, one day before admission, positive wound care, surgical dressing and abdominal binder was applied, history of hysterectomy. Staple removal from hysterectomy that was done on 09/06/2017. HABITS: No smoking, no drug, no ethanol. ALLERGIES: PATIENT IS NOT ALLERGIC TO ANY MEDICATIONS. HOME MEDICATIONS: Tylenol, carvedilol, Cardizem, Colace, Lovenox, Ancef, Motrin, Zestril, nystatin powder, Zofran. REVIEW OF SYSTEMS: Patient was seen and examined at the bedside, looking comfortable. No nausea, vomiting, or diarrhea. No hematuria or hematochezia. No swelling of the legs. No chest pain or palpitation. No headache or dizziness. PHYSICAL EXAMINATION: HEENT: Head normocephalic, atraumatic. Eyes, PERRLA. Extraocular muscles intact. Conjunctivae clear. Nose patent. Mucous membrane moist. NECK: Supple. No carotid bruit. No JVD or thyromegaly. CHEST: Bilaterally symmetrical. HEART: S1 and S2 positive. LUNGS: Clear to auscultation. ABDOMEN: Soft. Bowel sounds positive. No organomegaly. EXTREMITIES: No edema. No cyanosis. NEUROLOGICAL: The patient is awake and alert. Follows simple commands. MEDICATIONS: Acetaminophen, Cardizem , Lovenox, Ancef, Motrin, Zestril. LABORATORY DATA: White blood cells 4.2, hemoglobin 10.7, hematocrit 35.4, platelets 261. Sodium 141, potassium 4.1, BUN 30, creatinine 0.3, glucose 102. ASSESSMENT AND PLAN: Ms. Sumit Drake is a 72-year-old lady with anemia, leukopenia, history of hysterectomy, wound debridement and without primary closure of the wound, [place] drain fell out. Repeat labs. Gastrointestinal and deep vein thrombosis prophylaxis. We will follow up. Lucy Arechiga MD MTDD
[2017-09-26] MEDS: Linezolid 600 mg in D5W 300 ml 600 MG/300 ML BAG IVPB SCH ×2 (11:06→21:11)
[2017-09-26] MEDS: diltiaZEM 240 mg/24 Hours CD Cap PO SCH (11:08)
[2017-09-26] MEDS: Nystatin 100,000 Units/gm Topical Pow(15 gm) TOP SCH ×2 (11:09→17:46)
[2017-09-26] MEDS: Silver Sulfadiazine 1% Cream (25 gm) TP SCH (11:09)
--- NOTE | 2017-09-26 14:12 | CP.PCM.PN ---
Subjective - Date & Time of Evaluation Date of Evaluation: 09/26/17 Time of Evaluation: 12:00 - Subjective Subjective: A little less pain in the abdomen, no fevers. Objective - Vital Signs/Intake and Output Vital Signs (last 24 hours): Temp Pulse Resp BP Pulse Ox 97.8 F 71 18 157/80 H 95 09/26/17 06:00 09/26/17 06:00 09/26/17 06:00 09/26/17 06:00 09/26/17 06:00 Intake and Output: 09/26/17 09/26/17 06:59 18:59 Intake Total 320 Balance 320 - Medications Medications: Current Medications Acetaminophen (Tylenol 325mg Tab) 650 mg PO Q6H PRN PRN Reason: temp 101 Amiodarone HCl (Cordarone) 200 mg PO DAILY [facility] Last Admin: 09/25/17 10:23 Dose: 200 mg Diltiazem HCl (Cardizem Cd) 240 mg PO DAILY [facility] Last Admin: 09/25/17 10:23 Dose: 240 mg Diphenhydramine HCl (Benadryl) 25 mg PO HS PRN PRN Reason: Insomnia Last Admin: 09/26/17 02:54 Dose: 25 mg Docusate Sodium (Colace) 100 mg PO DAILY [facility] Last Admin: 09/25/17 10:31 Dose: Not Given Enoxaparin Sodium (Lovenox) 30 mg SC 0600,1800 RASHEED PRN Reason: Protocol Last Admin: 09/26/17 05:20 Dose: 30 mg Linezolid (Zyvox 600mg/300ml D5w) 600 mg in 300 mls @ 200 mls/hr IVPB Q12 RASHEED PRN Reason: Protocol Stop: 09/30/17 11:16 Last Admin: 09/25/17 21:15 Dose: 200 mls/hr Cefepime HCl (Maxipime 2gm) 2 gm in 100 mls @ 100 mls/hr IVPB Q8 RASHEED PRN Reason: Protocol Stop: 09/28/17 14:01 Last Admin: 09/26/17 05:20 Dose: 100 mls/hr Ibuprofen (Motrin Tab) 600 mg PO Q6H PRN PRN Reason: abdominal pain Last Admin: 09/25/17 10:23 Dose: 600 mg Lisinopril (Zestril) 10 mg PO DAILY [facility] Last Admin: 09/25/17 10:23 Dose: 10 mg Nystatin (Nystop Topical Powder) 0 gm TOP BID [facility] Last Admin: 09/25/17 17:46 Dose: 1 applic Ondansetron HCl (Zofran Inj) 4 mg IVP Q6H PRN PRN Reason: Nausea/Vomiting Pantoprazole Sodium (Protonix Ec Tab) 40 mg PO 0600 [facility] Last Admin: 09/26/17 05:20 Dose: 40 mg Silver Sulfadiazine (Silvadene 1% 25 Gm) 0 gm TP DAILY [facility] Last Admin: 09/25/17 11:08 Dose: Not Given - Labs Labs: 09/26/17 06:20 09/26/17 06:20 PT 12.7 SECONDS (9.4-12.5) H 09/24/17 08:30 INR 1.10 (0.93-1.08) H 09/24/17 08:30 APTT 31.0 Seconds (25.1-36.5) 09/24/17 08:30 - Constitutional Appears: Chronically Ill - Respiratory Exam Respiratory Exam: Decreased Breath Sounds - Cardiovascular Exam Cardiovascular Exam: +S1, +S2 - GI/Abdominal Exam GI & Abdominal Exam: Soft. absent: Tenderness Additional comments: dry dressings in place Assessment and Plan - Assessment and Plan (Free Text) Plan: Assessment Consider surgical site skin and skin structure infection S/P debridement and closure of the surgical site in this patient S/P hysterectomy, initially grew MSSA and rivera-sensitive Proteus but is now also growing Pseudomonas right breast papilloma HTN obesity with BMI 35 Plan continue Zyvox and Cefepime day 4 and will continue to monitor clinically - should target 7-10 days of antibiotics
--- NOTE | 2017-09-26 19:25 | CARD ---
APPROVED REPORT Date of service: 09/26/2017 EKG Measurement Heart [id number] <Conclusion> Normal sinus rhythm Normal ECG
--- NOTE | 2017-09-27 02:24 | PN ---
DATE: 09/26/2017 SUBJECTIVE: Patient was seen and examined at the bedside on 09/26/2017. According to her, she still has abdominal pain. she did good physical therapy. She has bowel movement. No fever. No chills. No nausea, vomiting or diarrhea. No hematuria or hematochezia. No swelling of the legs. No chest pain. No palpitation. PHYSICAL EXAMINATION: VITAL SIGNS: Temperature 97.8, pulse 71, respiratory rate 18, blood pressure 157/80, pulse oximetry 95%. HEENT: Head normocephalic, atraumatic. Eyes, PERRLA. Extraocular muscles intact. Conjunctivae clear. Nose patent. NECK: Supple. No carotid bruit, JVD or thyromegaly. CHEST: Bilaterally symmetrical. HEART: S1 and S2 positive. LUNGS: Clear to auscultation. ABDOMEN: Soft. Bowel sounds present. No organomegaly. EXTREMITIES: No edema, no cyanosis. NEUROLOGIC: Patient is awake and alert. Moving all four extremities. No focal deficits. MEDICATIONS: Cardizem, Benadryl, Colace, Lovenox, linezolid, cefepime, ibuprofen, Zestril, nystatin, Zofran, Protonix, Silvadene. LABORATORY DATA: White blood cell 3.7, hemoglobin 11.3, hematocrit 36.4, platelets 230. Sodium 140, potassium 4.1, BUN 10, creatinine 0.3, glucose 102. ASSESSMENT AND PLAN: Ms. Sumit Drake is a 72-year-old lady with leukopenia, anemia, has surgical site infection and skin structure infection, status post debridement and closure of the surgical site in this patient with status post hysterectomy, initially grew methicillin-sensitive Staphylococcus aureus and pansensitive Proteus, but is now also growing Pseudomonas. Patient with right breast papilloma, hypertension, obesity. Continue with Zyvox, cefepime, day #4, and we will continue monitoring clinically. Plan is 7 to 9 days of antibiotics. Patient is getting physical therapy, pain management. Gastrointestinal and deep vein thrombosis prophylaxes. Appreciated Infectious Disease and Cardiology notes. We will follow up. Lucy Arechiga MD [facility] # [id number] CRIS
[2017-09-27] MEDS: Cefepime IV 2 gm in NS 2 GM/100 ML BAG IVPB SCH ×3 (05:28→21:55)
[2017-09-27] MEDS: Enoxaparin 30 mg Syringe SC SCH (05:28)
[2017-09-27] MEDS: Pantoprazole 40 mg EC Tab PO SCH (05:29)
--- NOTE | 2017-09-27 06:51 | CP.PCM.PN ---
Subjective - Date & Time of Evaluation Date of Evaluation: 09/27/17 Time of Evaluation: 06:10 - Subjective Subjective: sleeping but easily awaken,no distress, PICC inserted yesterday Reason for consultation: Continuity of care in TCU, admitted due to abdominal wound dehiscence post hysterectomy and found to have new onset atrial fibrillation, hypertension, converted and remained on Normal sinus rhythm. Seen and examined by me and Dr. Bernabe Objective - Vital Signs/Intake and Output Vital Signs (last 24 hours): Temp Pulse Resp BP Pulse Ox 97.8 F 71 18 157/80 H 95 09/26/17 06:00 09/26/17 06:00 09/26/17 06:00 09/26/17 06:00 09/26/17 06:00 Intake and Output: 09/26/17 09/27/17 18:59 06:59 Intake Total 360 Balance 360 - Medications Medications: Current Medications Acetaminophen (Tylenol 325mg Tab) 650 mg PO Q6H PRN PRN Reason: temp 101 Amiodarone HCl (Cordarone) 200 mg PO DAILY [facility] Last Admin: 09/26/17 11:09 Dose: 200 mg Diltiazem HCl (Cardizem Cd) 240 mg PO DAILY [facility] Last Admin: 09/26/17 11:08 Dose: 240 mg Diphenhydramine HCl (Benadryl) 25 mg PO HS PRN PRN Reason: Insomnia Last Admin: 09/26/17 21:12 Dose: 25 mg Docusate Sodium (Colace) 100 mg PO DAILY [facility] Last Admin: 09/26/17 11:09 Dose: Not Given Enoxaparin Sodium (Lovenox) 30 mg SC 0600,1800 RASHEED PRN Reason: Protocol Last Admin: 09/27/17 05:28 Dose: 30 mg Linezolid (Zyvox 600mg/300ml D5w) 600 mg in 300 mls @ 200 mls/hr IVPB Q12 RASHEED PRN Reason: Protocol Stop: 09/30/17 11:16 Last Admin: 09/26/17 21:11 Dose: 200 mls/hr Cefepime HCl (Maxipime 2gm) 2 gm in 100 mls @ 100 mls/hr IVPB Q8 RASHEED PRN Reason: Protocol Stop: 09/28/17 14:01 Last Admin: 09/27/17 05:28 Dose: 100 mls/hr Ibuprofen (Motrin Tab) 600 mg PO Q6H PRN PRN Reason: abdominal pain Last Admin: 09/27/17 00:50 Dose: 600 mg Lisinopril (Zestril) 10 mg PO DAILY [facility] Last Admin: 09/26/17 11:09 Dose: 10 mg Nystatin (Nystop Topical Powder) 0 gm TOP BID [facility] Last Admin: 09/26/17 17:46 Dose: 1 applic Ondansetron HCl (Zofran Inj) 4 mg IVP Q6H PRN PRN Reason: Nausea/Vomiting Pantoprazole Sodium (Protonix Ec Tab) 40 mg PO 0600 [facility] Last Admin: 09/27/17 05:29 Dose: 40 mg Silver Sulfadiazine (Silvadene 1% 25 Gm) 0 gm TP DAILY [facility] Last Admin: 09/26/17 11:09 Dose: 1 gm - Labs Labs: 09/26/17 06:20 09/26/17 06:20 PT 12.7 SECONDS (9.4-12.5) H 09/24/17 08:30 INR 1.10 (0.93-1.08) H 09/24/17 08:30 APTT 31.0 Seconds (25.1-36.5) 09/24/17 08:30 - Constitutional Appears: No Acute Distress - ENT Exam ENT Exam: Mucous Membranes Moist - Respiratory Exam Respiratory Exam: Clear to Ausculation Bilateral, NORMAL BREATHING PATTERN - Cardiovascular Exam Cardiovascular Exam: +S1, +S2 - GI/Abdominal Exam GI & Abdominal Exam: Soft, Normal Bowel Sounds Additional comments: abdominal dressing intact - Extremities Exam Additional comments: left arm PICC - Neurological Exam Neurological Exam: Alert, Awake, Oriented x3 - Psychiatric Exam Psychiatric exam: Normal Affect, Normal Mood - Skin Skin Exam: Dry, Warm Assessment and Plan - Assessment and Plan (Free Text) Assessment: A 72 year old female, obese who came in to the ER due to abdominal wound dehiscence post hysterectomy and found to have new onset atrial fibrillation. Patient had hysterectomy at [facility] on 09/06/17. On 09/16/17, harmony were removed. On 09/19/17, she came in to the ER due to bleeding at surgical wound and found to have wound dehiscence. [place] [facility] [place] Atrial fibrillation was controlled with IV cardizem then switch to oral cardizem and amiodarone. She was also started with Coumadin.Afib converted to normal sinus rhythm. History of hypertension.Transferred to TCU for reconditioning and rehab. Recent ECHO- normal LVEF 65%, MSSA and pseudomonas-wound, on IV antibiotics/ID consult. PICC inserted Plan: Cardiac status stable Blood pressure and heart rate stable EKG 12 lead- remained Normal sinus rhythm Physical therapy in progress PICC inserted yesterday Continue IV antibiotics per ID (MSSA and pseudomonas-wound) Continue current treatment Continue current medications discharge planning Will follow up Plan and treatment discussed with Dr. Bernabe
[2017-09-27 07:14] LABS: BASO # 0.01 K/mm3 (0.0-2.0); BASO % 0.3 % (0.0-3.0); EOS # 0.1 (0.0-0.7); EOS % 2.6 % (1.5-5.0); GRAN # 2.13 (1.4-6.5); HEMOGLOBIN 10.9 g/dL (12.0-16.0); LYMPH # 1.2 (1.2-3.4); LYMPH % 31.1 % (22.0-35.0); MEAN CELL VOLUME 97.5 fl (80.0-105.0); MEAN CORPUSCULAR HEMOGLOBIN 30.1 pg (25.0-35.0); MEAN CORPUSCULAR HGB CONC 30.9 g/dl (31.0-37.0); MEAN PLATELET VOLUME 9.9 fl (7.0-11.0); MONO # 0.4 (0.1-0.6); RBC 3.62 10^6/uL (3.5-6.1); RED CELL DISTRIBUTION WIDTH 15.1 % (11.5-14.5); WHITE BLOOD COUNT 3.8 10^3/ul (4.5-11.0)
[2017-09-27 07:21] LABS: BLOOD UREA NITROGEN 8 mg/dL (7-21); CALCIUM 7.1 mg/dL (8.4-10.5); GFR AFRICAN-AMERICAN > 60; GFR NON-AFRICAN AMERICAN > 60
--- NOTE | 2017-09-27 08:05 | CP.PCM.PN ---
Subjective - Date & Time of Evaluation Date of Evaluation: 09/27/17 Time of Evaluation: 08:01 - Subjective Subjective: GENERAL SURGERY PROGRESS NOTE FOR DR. HAN Patient seen and examined at bedside this am in TCU. No acute events overnight. Pt still has some incisional soreness. She is tolerating her diet well and ambulating. She denies fevers, chills, dizziness, chest pain, shortness of breath, constipation, diarrhea, dysuria. Objective - Vital Signs/Intake and Output Vital Signs (last 24 hours): Temp Pulse Resp BP Pulse Ox 97.8 F 71 18 157/80 H 95 09/26/17 06:00 09/26/17 06:00 09/26/17 06:00 09/26/17 06:00 09/26/17 06:00 Intake and Output: 09/27/17 09/27/17 06:59 18:59 Intake Total 360 Balance 360 - Medications Medications: Current Medications Acetaminophen (Tylenol 325mg Tab) 650 mg PO Q6H PRN PRN Reason: temp 101 Amiodarone HCl (Cordarone) 200 mg PO DAILY [facility] Last Admin: 09/26/17 11:09 Dose: 200 mg Diltiazem HCl (Cardizem Cd) 240 mg PO DAILY [facility] Last Admin: 09/26/17 11:08 Dose: 240 mg Diphenhydramine HCl (Benadryl) 25 mg PO HS PRN PRN Reason: Insomnia Last Admin: 09/26/17 21:12 Dose: 25 mg Docusate Sodium (Colace) 100 mg PO DAILY [facility] Last Admin: 09/26/17 11:09 Dose: Not Given Enoxaparin Sodium (Lovenox) 30 mg SC 0600,1800 RASHEED PRN Reason: Protocol Last Admin: 09/27/17 05:28 Dose: 30 mg Linezolid (Zyvox 600mg/300ml D5w) 600 mg in 300 mls @ 200 mls/hr IVPB Q12 RASHEED PRN Reason: Protocol Stop: 09/30/17 11:16 Last Admin: 09/26/17 21:11 Dose: 200 mls/hr Cefepime HCl (Maxipime 2gm) 2 gm in 100 mls @ 100 mls/hr IVPB Q8 RASHEED PRN Reason: Protocol Stop: 09/28/17 14:01 Last Admin: 09/27/17 05:28 Dose: 100 mls/hr Ibuprofen (Motrin Tab) 600 mg PO Q6H PRN PRN Reason: abdominal pain Last Admin: 09/27/17 00:50 Dose: 600 mg Lisinopril (Zestril) 10 mg PO DAILY [facility] Last Admin: 09/26/17 11:09 Dose: 10 mg Nystatin (Nystop Topical Powder) 0 gm TOP BID [facility] Last Admin: 09/26/17 17:46 Dose: 1 applic Ondansetron HCl (Zofran Inj) 4 mg IVP Q6H PRN PRN Reason: Nausea/Vomiting Pantoprazole Sodium (Protonix Ec Tab) 40 mg PO 0600 [facility] Last Admin: 09/27/17 05:29 Dose: 40 mg Silver Sulfadiazine (Silvadene 1% 25 Gm) 0 gm TP DAILY [facility] Last Admin: 09/26/17 11:09 Dose: 1 gm - Labs Labs: 09/27/17 07:00 09/27/17 07:00 PT 12.7 SECONDS (9.4-12.5) H 09/24/17 08:30 INR 1.10 (0.93-1.08) H 09/24/17 08:30 APTT 31.0 Seconds (25.1-36.5) 09/24/17 08:30 - Constitutional Appears: Well, Non-toxic, No Acute Distress - Head Exam Head Exam: NORMAL INSPECTION - Eye Exam Eye Exam: Normal appearance - ENT Exam ENT Exam: Mucous Membranes Moist - Respiratory Exam Respiratory Exam: NORMAL BREATHING PATTERN - Cardiovascular Exam Cardiovascular Exam: REGULAR RHYTHM - GI/Abdominal Exam GI & Abdominal Exam: Soft, Tenderness (tenderness around incisional area). absent: Distended, Firm, Guarding Additional comments: Incisional wound is well approximated with retention sutures in place. No purulence and minimal drainage. Minimal erythema with improvement since admission. Dressing in place with silvedene ointment - Extremities Exam Extremities Exam: Normal Inspection. absent: Calf Tenderness - Neurological Exam Neurological Exam: Alert, Altered, Oriented x3 - Psychiatric Exam Psychiatric exam: Normal Affect, Normal Mood - Skin Skin Exam: Dry, Normal Color, Warm Assessment and Plan - Assessment and Plan (Free Text) Assessment: 72 y/o F POD#8 s/p debridement and washout of dehiscent hysterectomy incisional wound Plan: - continue daily dressing changes with silvedene ointment - continue PT, encourage ambulation as tolerated - continue abdominal binders as tolerated - continue abx per ID recs - Discussed with Dr. Han. Further recs per him James Ferrari PGY1
[2017-09-27] MEDS: Linezolid 600 mg in D5W 300 ml 600 MG/300 ML BAG IVPB SCH ×3 (08:23→18:58)
[2017-09-27] MEDS ORDERED: Potassium Chloride 20 mEq ER Tab PO ONE ×2 (08:41→15:00)
[2017-09-27] MEDS: diltiaZEM 240 mg/24 Hours CD Cap PO SCH (09:54)
[2017-09-27] MEDS: Nystatin 100,000 Units/gm Topical Pow(15 gm) TOP SCH ×2 (09:55→17:41)
[2017-09-27] MEDS: Silver Sulfadiazine 1% Cream (25 gm) TP SCH (09:56)
--- NOTE | 2017-09-27 10:34 | PN ---
DATE: 09/27/2017 SUBJECTIVE: Sumit Drake is seen. The wound is stable. It does not look infected. There is a little bit of erythema, but there is not much healing going on. The harmony are pulling apart. The wound is held together with the large retention stitches. I am very pleased with the very little drainage. CAT scan is reviewed. There is nothing drainable. She is very nervous. We will continue with local care. Right now, IV antibiotics are being given. I spoke to Dr. Spring, who believes it is possible to switch over to orals. The patient is very nervous about going home and advised that she will have visiting nurses and if IV antibiotics are necessary, IV therapy. Sang Oscar MD
--- NOTE | 2017-09-28 01:23 | PN ---
DATE: 09/27/2017 SUBJECTIVE: Patient is a 72-year-old female. Patient was seen and examined on the bedside on 09/27/2017. Patient is in TCU, sitting in her room in her chair. No acute event overnight. Has some incisional soreness. She is tolerating her diet very well, ambulating, getting good physical therapy. No fever. No chills. No nausea or vomiting. No dizziness. Had a history of diarrhea today. Sent stool for C. difficile toxin colitis. PHYSICAL EXAMINATION: VITAL SIGNS: Temperature 97.8, pulse 71, respiratory rate 18, blood pressure 157/80, pulse oximetry 95%. HEENT: Head: Normocephalic and atraumatic. Eyes: PERRLA. Extraocular muscles intact. Conjunctivae clear. Nose patent. Mucous membrane moist. NECK: Supple. No carotid bruit, JVD, or thyromegaly. CHEST: Bilaterally symmetrical. HEART: S1 and S2 positive. LUNGS: Clear to auscultation. ABDOMEN: Soft. Bowel sounds present. No organomegaly. EXTREMITIES: No edema. No cyanosis. NEUROLOGIC: Patient is awake and alert. Moving all 4 extremities. No focal deficit. MEDICATIONS: Tylenol, amiodarone, Cardizem, Benadryl, Colace, Lovenox, Zyvox, Maxipime, Motrin, Zestril, nystatin, Zofran, Protonix, Silvadene. LABORATORY DATA: White blood cells 3.8, hemoglobin 10.9, hematocrit 35.2, platelets 200. Sodium 142, potassium 3.3, BUN 8, creatinine 0.5, glucose 86. ASSESSMENT AND PLAN: Ms. Sumit Drake is a 72-year-old lady with leukopenia, anemia, hypokalemia - replaced, hyperchloremia, postoperative day 8 - status post debridement and washout of recent hysterectomy, incisional wound pain - improving slowly. Tolerating food very well. Daily dressing change with Silvadene ointment. Continue physical therapy. Encourage ambulation as tolerated. Continue abdominal binder as tolerated. Continue antibiotics as per Infectious Disease. Continue wound care as per surgeon. Patient is having diarrhea today. Sent stool for Clostridium difficile toxin colitis. Appreciated Dr. Oscar's input and Cardiology input. GI and deep vein thrombosis prophylaxes. Patient was started with Coumadin for atrial fibrillation, converted to normal sinus rhythm, history of hypertension. Now in Intensive Care Unit. We will follow up. Lucy Arechiga MD
[2017-09-28] MEDS: Enoxaparin 40 mg Syringe SC SCH (05:38)
[2017-09-28] MEDS: Cefepime IV 2 gm in NS 2 GM/100 ML BAG IVPB SCH ×2 (05:38→14:04)
[2017-09-28] MEDS: Pantoprazole 40 mg EC Tab PO SCH (05:39)
[2017-09-28] MEDS: Linezolid 600 mg in D5W 300 ml 600 MG/300 ML BAG IVPB SCH ×2 (05:39→17:33)
--- NOTE | 2017-09-28 07:07 | CP.PCM.PN ---
Subjective - Date & Time of Evaluation Date of Evaluation: 09/28/17 Time of Evaluation: 07:00 - Subjective Subjective: Awake, ambulated to bathroom, no distress Reason for consultation: Continuity of care in TCU, admitted due to abdominal wound dehiscence post hysterectomy and found to have new onset atrial fibrillation, hypertension, converted and remained on Normal sinus rhythm. Seen and examined by me and Dr. Bernabe Objective - Vital Signs/Intake and Output Vital Signs (last 24 hours): Temp Pulse Resp BP Pulse Ox 98.6 F 63 20 139/67 94 L 09/27/17 16:00 09/27/17 16:00 09/27/17 16:00 09/27/17 16:00 09/27/17 16:00 - Medications Medications: Current Medications Acetaminophen (Tylenol 325mg Tab) 650 mg PO Q6H PRN PRN Reason: temp 101 Amiodarone HCl (Cordarone) 200 mg PO DAILY [facility] Last Admin: 09/27/17 09:55 Dose: 200 mg Diltiazem HCl (Cardizem Cd) 240 mg PO DAILY [facility] Last Admin: 09/27/17 09:54 Dose: 240 mg Diphenhydramine HCl (Benadryl) 25 mg PO HS PRN PRN Reason: Insomnia Last Admin: 09/27/17 21:54 Dose: 25 mg Docusate Sodium (Colace) 100 mg PO DAILY [facility] Last Admin: 09/27/17 09:54 Dose: 100 mg Enoxaparin Sodium (Lovenox) 40 mg SC 0600 [facility] PRN Reason: Protocol Last Admin: 09/28/17 05:38 Dose: 40 mg Cefepime HCl (Maxipime 2gm) 2 gm in 100 mls @ 100 mls/hr IVPB Q8 [facility] PRN Reason: Protocol Stop: 09/28/17 14:01 Last Admin: 09/28/17 05:38 Dose: 100 mls/hr Linezolid (Zyvox 600mg/300ml D5w) 600 mg in 300 mls @ 200 mls/hr IVPB 0600, 1800 [facility] PRN Reason: Protocol Stop: 10/04/17 18:01 Last Admin: 09/28/17 05:39 Dose: 200 mls/hr Ibuprofen (Motrin Tab) 600 mg PO Q6H PRN PRN Reason: abdominal pain Last Admin: 09/27/17 00:50 Dose: 600 mg Lisinopril (Zestril) 10 mg PO DAILY [facility] Last Admin: 09/27/17 09:57 Dose: 10 mg Nystatin (Nystop Topical Powder) 0 gm TOP BID [facility] Last Admin: 09/27/17 17:41 Dose: 1 applic Ondansetron HCl (Zofran Inj) 4 mg IVP Q6H PRN PRN Reason: Nausea/Vomiting Pantoprazole Sodium (Protonix Ec Tab) 40 mg PO 0600 [facility] Last Admin: 09/28/17 05:39 Dose: 40 mg Silver Sulfadiazine (Silvadene 1% 25 Gm) 0 gm TP DAILY [facility] Last Admin: 09/27/17 09:56 Dose: 1 gm - Labs Labs: 09/27/17 07:00 09/27/17 07:00 PT 12.7 SECONDS (9.4-12.5) H 09/24/17 08:30 INR 1.10 (0.93-1.08) H 09/24/17 08:30 APTT 31.0 Seconds (25.1-36.5) 09/24/17 08:30 - Constitutional Appears: No Acute Distress - Head Exam Head Exam: NORMOCEPHALIC - Eye Exam Eye Exam: Normal appearance - ENT Exam ENT Exam: Mucous Membranes Moist - Respiratory Exam Respiratory Exam: Clear to Ausculation Bilateral, NORMAL BREATHING PATTERN - Cardiovascular Exam Cardiovascular Exam: +S1, +S2 - GI/Abdominal Exam GI & Abdominal Exam: Soft, Normal Bowel Sounds Additional comments: abdominal dressing intact - Extremities Exam Additional comments: left arm PICC 1+edema - Neurological Exam Neurological Exam: Alert, Awake, Oriented x3 - Skin Skin Exam: Dry, Intact, Warm Assessment and Plan - Assessment and Plan (Free Text) Assessment: A 72 year old female, obese who came in to the ER due to abdominal wound dehiscence post hysterectomy and found to have new onset atrial fibrillation. Patient had hysterectomy at [facility] on 09/06/17. On 09/16/17, harmony were removed. On 09/19/17, she came in to the ER due to bleeding at surgical wound and found to have wound dehiscence. Patient underwent wound debridement and closure at [facility]. Atrial fibrillation was controlled with IV cardizem then switch to oral cardizem and amiodarone. She was also started with Coumadin.Afib converted to normal sinus rhythm. History of hypertension.Transferred to TCU for reconditioning and rehab. Recent ECHO- normal LVEF 65%, MSSA and pseudomonas-wound, on IV antibiotics/ID consult. PICC inserted Plan: Ambulating to bathroom With PICC Cardiac status stable Blood pressure and heart rate stable Physical therapy in progress Continue IV antibiotics until Tuesday Continue current treatment Continue current medications Discharge planning Will follow up Plan and treatment discussed with Dr. Bernabe
[2017-09-28] MEDS ORDERED: Enoxaparin 40 mg Syringe SC SCH (10:00)
[2017-09-28] MEDS: diltiaZEM 240 mg/24 Hours CD Cap PO SCH (10:23)
[2017-09-28] MEDS: Nystatin 100,000 Units/gm Topical Pow(15 gm) TOP SCH ×2 (10:24→17:31)
[2017-09-28] MEDS: Silver Sulfadiazine 1% Cream (25 gm) TP SCH (10:25)
--- NOTE | 2017-09-28 10:59 | CP.PCM.PN ---
Subjective - Date & Time of Evaluation Date of Evaluation: 09/28/17 Time of Evaluation: 10:56 - Subjective Subjective: GENERAL SURGERY PROGRESS NOTE FOR DR. HAN Patient seen and examined at bedside this am. No acute events overnight. Patient is resting comfortably in bed in TCU. She has no complaints this am. She has been undergoing PT and progressing well. She is tolerated her diet well and having normal bowel movements. She denies fevers, chills, chest pain, shortness of breath, nausea, vomiting, abdominal pain, constipation, diarrhea. Objective - Vital Signs/Intake and Output Vital Signs (last 24 hours): Temp Pulse Resp BP Pulse Ox 98.6 F 72 20 130/85 94 L 09/27/17 16:00 09/28/17 10:23 09/27/17 16:00 09/28/17 10:23 09/27/17 16:00 - Medications Medications: Current Medications Acetaminophen (Tylenol 325mg Tab) 650 mg PO Q6H PRN PRN Reason: temp 101 Amiodarone HCl (Cordarone) 200 mg PO DAILY [facility] Last Admin: 09/28/17 10:23 Dose: 200 mg Diltiazem HCl (Cardizem Cd) 240 mg PO DAILY [facility] Last Admin: 09/28/17 10:23 Dose: 240 mg Diphenhydramine HCl (Benadryl) 25 mg PO HS PRN PRN Reason: Insomnia Last Admin: 09/27/17 21:54 Dose: 25 mg Docusate Sodium (Colace) 100 mg PO DAILY [facility] Last Admin: 09/28/17 10:23 Dose: Not Given Enoxaparin Sodium (Lovenox) 40 mg SC 0600 [facility] PRN Reason: Protocol Last Admin: 09/28/17 05:38 Dose: 40 mg Cefepime HCl (Maxipime 2gm) 2 gm in 100 mls @ 100 mls/hr IVPB Q8 [facility] PRN Reason: Protocol Stop: 09/28/17 14:01 Last Admin: 09/28/17 05:38 Dose: 100 mls/hr Linezolid (Zyvox 600mg/300ml D5w) 600 mg in 300 mls @ 200 mls/hr IVPB 0600, 1800 [facility] PRN Reason: Protocol Stop: 10/04/17 18:01 Last Admin: 07/25/18 05:39 Dose: 200 mls/hr Ibuprofen (Motrin Tab) 600 mg PO Q6H PRN PRN Reason: abdominal pain Last Admin: 09/28/17 10:49 Dose: 600 mg Lisinopril (Zestril) 10 mg PO DAILY [facility] Last Admin: 09/28/17 10:26 Dose: 10 mg Nystatin (Nystop Topical Powder) 0 gm TOP BID [facility] Last Admin: 09/28/17 10:24 Dose: 1 applic Ondansetron HCl (Zofran Inj) 4 mg IVP Q6H PRN PRN Reason: Nausea/Vomiting Pantoprazole Sodium (Protonix Ec Tab) 40 mg PO 0600 [facility] Last Admin: 09/28/17 05:39 Dose: 40 mg Silver Sulfadiazine (Silvadene 1% 25 Gm) 0 gm TP DAILY [facility] Last Admin: 09/28/17 10:25 Dose: 1 gm - Labs Labs: 09/27/17 07:00 09/27/17 07:00 PT 12.7 SECONDS (9.4-12.5) H 09/24/17 08:30 INR 1.10 (0.93-1.08) H 09/24/17 08:30 APTT 31.0 Seconds (25.1-36.5) 09/24/17 08:30 - Constitutional Appears: Well, Non-toxic, No Acute Distress - Head Exam Head Exam: NORMAL INSPECTION - Eye Exam Eye Exam: Normal appearance - ENT Exam ENT Exam: Mucous Membranes Moist - Respiratory Exam Respiratory Exam: NORMAL BREATHING PATTERN - Cardiovascular Exam Cardiovascular Exam: REGULAR RHYTHM - GI/Abdominal Exam GI & Abdominal Exam: Soft, Tenderness (minimal tenderness to incisional wound. ) . absent: Distended, Firm, Guarding, Rigid Additional comments: incisional wound well approximated with retention sutures in place wound is clean dry and intact minimal erythema and minimal drainage no purulence noted medipore dressing with silvadene in place. minimal drainage on dressing - Extremities Exam Extremities Exam: Normal Inspection. absent: Calf Tenderness - Neurological Exam Neurological Exam: Alert, Awake, Oriented x3 - Psychiatric Exam Psychiatric exam: Normal Affect, Normal Mood - Skin Skin Exam: Dry, Normal Color, Warm Assessment and Plan - Assessment and Plan (Free Text) Assessment: 72 y/o POD#9 s/p debridement and washout of dehiscent hysterectomy wound Plan: - continue daily dressing changes with silvadene ointment - continue PT. encourage ambulation as tolerated - continue abx as per ID recs. Pt to switch to PO abx upon discharge - f/u cardio recs - Discussed with Dr. Han. Further recs per him James Ferrari PGY1
[2017-09-28 13:08] VITALS: RESP 18
--- NOTE | 2017-09-28 13:35 | PN ---
DATE: 09/28/2017 SUBJECTIVE: The patient is in bed, was seen earlier today in 303. The patient had an uneventful night and as per nursing staff. PHYSICAL EXAMINATION: VITAL SIGNS: Temperature is 98, blood pressure is 130/60, respiratory rate of 18. HEENT: Examination of HEENT is unremarkable. NECK: Supple. LUNGS: Have decreased breath sounds. HEART: Normal S1 and S2. ABDOMEN: Soft, nontender. LABORATORY DATA: Laboratory examination reveals a white count of 3.8, hemoglobin of 10. Chemistries are noted. Microbiology is reviewed. The patient's stool for C. diff is negative antigen and negative toxin. ASSESSMENT AND PLAN: A 72-year-old with surgical site skin and skin structure infection, status post debridement and closure of the surgical site in a patient with hysterectomy. Initially, grew methicillin-susceptible Staphylococcus aureus and pansensitive Proteus. Now, has grown Pseudomonas and the patient with right breast papilloma, hypertension, obesity. On Zyvox, cefepime, day #6 with target 7-10 days of antibiotics. The patient states she would prefer to go home on p.o. antibiotics if possible. Virgilio Spring MD
[2017-09-28] MEDS ORDERED: Bismuth Subsalicylate 262 mg/15 ml Sus (240 ml) PO PRN (16:22)
--- NOTE | 2017-09-28 18:36 | CARD ---
APPROVED REPORT Date of service: 09/28/2017 EKG Measurement Heart [id number] <Conclusion> Sinus rhythm with premature atrial complexes Nonspecific ST abnormality Abnormal ECG
--- NOTE | 2017-09-28 23:21 | PN ---
DATE: 09/27/2017 SUBJECTIVE: The patient was seen yesterday in the CCU in room 303, on 09/27/2017. Patient is doing well. No fevers and no chills. No nausea or vomiting. PHYSICAL EXAMINATION: VITAL SIGNS: Temperature is 98, blood pressure is 112/70, respiratory rate 16. HEENT: Unremarkable. NECK: Supple. LUNGS: Have decreased breath sounds. HEART: Normal S1 and S2. ABDOMEN: Soft, nontender. LABORATORY EXAMINATION: Reveals the patient's labs are reviewed. ASSESSMENT AND PLAN: This is a 72-year-old female with surgical site infection, status post debridement and closure, initially grew methicillin-sensitive Staphylococcus aureus and pansensitive Proteus, now with Pseudomonas. We will continue the present therapy as of yesterday, 09/27/2017, day #5 of therapy with target 7-10 days. The patient is on Zyvox and cefepime. Virgilio Spring MD
[2017-09-29] MEDS: Enoxaparin 40 mg Syringe SC SCH (05:24)
[2017-09-29] MEDS: Pantoprazole 40 mg EC Tab PO SCH (05:25)
[2017-09-29] MEDS: Linezolid 600 mg in D5W 300 ml 600 MG/300 ML BAG IVPB SCH ×2 (05:25→17:18)
--- NOTE | 2017-09-29 07:34 | CP.PCM.PN ---
Subjective - Date & Time of Evaluation Date of Evaluation: 09/29/17 Time of Evaluation: 06:55 - Subjective Subjective: Awake, lying in bed, no distress,frustrated Reason for consultation: Continuity of care in TCU, admitted due to abdominal wound dehiscence post hysterectomy and found to have new onset atrial fibrillation, hypertension, converted and remained on Normal sinus rhythm. Seen and examined by me and Dr. Bernabe Objective - Vital Signs/Intake and Output Vital Signs (last 24 hours): Temp Pulse Resp BP Pulse Ox 97.4 F L 72 18 130/85 95 09/28/17 10:00 09/28/17 10:23 09/28/17 10:00 09/28/17 10:23 09/28/17 10:00 - Medications Medications: Current Medications Acetaminophen (Tylenol 325mg Tab) 650 mg PO Q6H PRN PRN Reason: temp 101 Amiodarone HCl (Cordarone) 200 mg PO DAILY [facility] Last Admin: 09/28/17 10:23 Dose: 200 mg Bismuth Subsalicylate (Pepto-Bismol) 262 mg PO TID PRN; Protocol PRN Reason: Dyspepsia Stop: 09/30/17 16:22 Last Admin: 09/28/17 17:32 Dose: 262 mg Diltiazem HCl (Cardizem Cd) 240 mg PO DAILY [facility] Last Admin: 09/28/17 10:23 Dose: 240 mg Diphenhydramine HCl (Benadryl) 25 mg PO HS PRN PRN Reason: Insomnia Last Admin: 09/29/17 00:06 Dose: 25 mg Docusate Sodium (Colace) 100 mg PO DAILY [facility] Last Admin: 09/28/17 10:23 Dose: Not Given Enoxaparin Sodium (Lovenox) 40 mg SC 0600 [facility] PRN Reason: Protocol Last Admin: 09/29/17 05:24 Dose: 40 mg Linezolid (Zyvox 600mg/300ml D5w) 600 mg in 300 mls @ 200 mls/hr IVPB 0600, 1800 [facility] PRN Reason: Protocol Stop: 10/04/17 18:01 Last Admin: 09/29/17 05:25 Dose: 200 mls/hr Ibuprofen (Motrin Tab) 600 mg PO Q6H PRN PRN Reason: abdominal pain Last Admin: 09/28/17 10:49 Dose: 600 mg Lisinopril (Zestril) 10 mg PO DAILY [facility] Last Admin: 09/28/17 10:26 Dose: 10 mg Nystatin (Nystop Topical Powder) 0 gm TOP BID [facility] Last Admin: 09/28/17 17:31 Dose: 1 applic Ondansetron HCl (Zofran Inj) 4 mg IVP Q6H PRN PRN Reason: Nausea/Vomiting Pantoprazole Sodium (Protonix Ec Tab) 40 mg PO 0600 [facility] Last Admin: 09/29/17 05:25 Dose: 40 mg Silver Sulfadiazine (Silvadene 1% 25 Gm) 0 gm TP DAILY [facility] Last Admin: 09/28/17 10:25 Dose: 1 gm - Labs Labs: 09/27/17 07:00 09/27/17 07:00 PT 12.7 SECONDS (9.4-12.5) H 09/24/17 08:30 INR 1.10 (0.93-1.08) H 09/24/17 08:30 APTT 31.0 Seconds (25.1-36.5) 09/24/17 08:30 - Constitutional Appears: No Acute Distress - Head Exam Head Exam: NORMOCEPHALIC - Eye Exam Eye Exam: Normal appearance - ENT Exam ENT Exam: Mucous Membranes Moist - Respiratory Exam Respiratory Exam: Clear to Ausculation Bilateral, NORMAL BREATHING PATTERN - Cardiovascular Exam Cardiovascular Exam: +S1, +S2 - GI/Abdominal Exam Additional comments: abdominal dressing intact - Exam Additional comments: continent - Extremities Exam Additional comments: 1+edema left arm PICC - Neurological Exam Neurological Exam: Alert, Awake, Oriented x3 - Psychiatric Exam Psychiatric exam: Normal Affect, Normal Mood - Skin Skin Exam: Intact, Warm Assessment and Plan - Assessment and Plan (Free Text) Assessment: A 72 year old female, obese who came in to the ER due to abdominal wound dehiscence post hysterectomy and found to have new onset atrial fibrillation. Patient had hysterectomy at [facility] on 09/06/17. On 09/16/17, harmony were removed. On 09/19/17, she came in to the ER due to bleeding at surgical wound and found to have wound dehiscence. Patient underwent wound debridement and closure at [facility]. Atrial fibrillation was controlled with IV cardizem then switch to oral cardizem and amiodarone. She was also started with Coumadin.Afib converted to normal sinus rhythm. History of hypertension.Transferred to TCU for reconditioning and rehab. Recent ECHO- normal LVEF 65%, MSSA and pseudomonas-wound, on IV antibiotics/ID consult. PICC inserted Plan: Physical therapy in progress In bed, frustrated about infection Reassured With PICC IV antibiotics till Tuesday Cardiac status stable Blood pressure and heart rate stable Continue current treatment Continue current medications Discharge planning Will follow up Plan and treatment discussed with Dr. Bernabe
--- NOTE | 2017-09-29 07:55 | CP.PCM.PN ---
Subjective - Date & Time of Evaluation Date of Evaluation: 09/29/17 Time of Evaluation: 07:52 - Subjective Subjective: GENERAL SURGERY PROGRESS NOTE FOR DR. HAN Patient seen and examined at bedside this am. No acute events overnight. Pt is resting comfortably in TCU. She is ambulating and tolerating her diet. She reports no complaints this am. She denies fevers, chills, chest pain, shortness of breath, nausea, vomiting, abdominal pain, constipation, diarrhea. Objective - Vital Signs/Intake and Output Vital Signs (last 24 hours): Temp Pulse Resp BP Pulse Ox 97.4 F L 72 18 130/85 95 09/28/17 10:00 09/28/17 10:23 09/28/17 10:00 09/28/17 10:23 09/28/17 10:00 - Medications Medications: Current Medications Acetaminophen (Tylenol 325mg Tab) 650 mg PO Q6H PRN PRN Reason: temp 101 Amiodarone HCl (Cordarone) 200 mg PO DAILY [facility] Last Admin: 09/28/17 10:23 Dose: 200 mg Bismuth Subsalicylate (Pepto-Bismol) 262 mg PO TID PRN; Protocol PRN Reason: Dyspepsia Stop: 09/30/17 16:22 Last Admin: 09/28/17 17:32 Dose: 262 mg Diltiazem HCl (Cardizem Cd) 240 mg PO DAILY [facility] Last Admin: 09/28/17 10:23 Dose: 240 mg Diphenhydramine HCl (Benadryl) 25 mg PO HS PRN PRN Reason: Insomnia Last Admin: 09/29/17 00:06 Dose: 25 mg Docusate Sodium (Colace) 100 mg PO DAILY [facility] Last Admin: 09/28/17 10:23 Dose: Not Given Enoxaparin Sodium (Lovenox) 40 mg SC 0600 [facility] PRN Reason: Protocol Last Admin: 09/29/17 05:24 Dose: 40 mg Linezolid (Zyvox 600mg/300ml D5w) 600 mg in 300 mls @ 200 mls/hr IVPB 0600, 1800 [facility] PRN Reason: Protocol Stop: 10/04/17 18:01 Last Admin: 09/29/17 05:25 Dose: 200 mls/hr Ibuprofen (Motrin Tab) 600 mg PO Q6H PRN PRN Reason: abdominal pain Last Admin: 09/28/17 10:49 Dose: 600 mg Lisinopril (Zestril) 10 mg PO DAILY [facility] Last Admin: 09/28/17 10:26 Dose: 10 mg Nystatin (Nystop Topical Powder) 0 gm TOP BID [facility] Last Admin: 09/28/17 17:31 Dose: 1 applic Ondansetron HCl (Zofran Inj) 4 mg IVP Q6H PRN PRN Reason: Nausea/Vomiting Pantoprazole Sodium (Protonix Ec Tab) 40 mg PO 0600 [facility] Last Admin: 09/29/17 05:25 Dose: 40 mg Silver Sulfadiazine (Silvadene 1% 25 Gm) 0 gm TP DAILY [facility] Last Admin: 09/28/17 10:25 Dose: 1 gm - Labs Labs: 09/27/17 07:00 09/27/17 07:00 PT 12.7 SECONDS (9.4-12.5) H 09/24/17 08:30 INR 1.10 (0.93-1.08) H 09/24/17 08:30 APTT 31.0 Seconds (25.1-36.5) 09/24/17 08:30 - Constitutional Appears: Well, Non-toxic, No Acute Distress - Head Exam Head Exam: NORMAL INSPECTION - Eye Exam Eye Exam: Normal appearance - Respiratory Exam Respiratory Exam: NORMAL BREATHING PATTERN - Cardiovascular Exam Cardiovascular Exam: REGULAR RHYTHM - GI/Abdominal Exam GI & Abdominal Exam: Soft, Tenderness (minimal tenderness around incisional site ). absent: Distended, Firm, Guarding Additional comments: Incision site clean, dry and intact. Wound is well-approximated with retention sutures in place Minimal erythema, minimal drainage with no purulence noted Minimal serosanguinous drainage on dressing - Extremities Exam Extremities Exam: Normal Inspection. absent: Calf Tenderness - Neurological Exam Neurological Exam: Alert, Awake, Oriented x3 - Psychiatric Exam Psychiatric exam: Normal Affect, Normal Mood - Skin Skin Exam: Dry, Normal Color, Warm Assessment and Plan - Assessment and Plan (Free Text) Assessment: 72 y/o POD#10 s/p dehiscent hysterectomy wound debridement and washout Plan: - continue daily abdominal wound dressing changes with silvadene ointment - continue abx per ID recs. switch to po abx upon discharge - continue PT. encourage ambulation as tolerated - pt to receive visiting nursing services upon d/c with routine dressing changes - f/u cardio recs - f/u with Dr. Han after discharge. F/u with original operating physician - Discussed with Dr. Han. Further recs per him James Ferrari PGY1
[2017-09-29] MEDS: Nystatin 100,000 Units/gm Topical Pow(15 gm) TOP SCH ×2 (10:00→17:17)
--- NOTE | 2017-09-29 11:44 | CP.PCM.PN ---
Subjective - Date & Time of Evaluation Date of Evaluation: 09/29/17 Time of Evaluation: 10:40 - Subjective Subjective: Patient is feeling better, less pain in the abdomen, no nausea, no fevers, no diarrhea. Objective - Vital Signs/Intake and Output Vital Signs (last 24 hours): Temp Pulse Resp BP Pulse Ox 97.4 F L 74 18 155/79 H 95 09/28/17 10:00 09/29/17 09:11 09/28/17 10:00 09/29/17 09:11 09/28/17 10:00 - Medications Medications: Current Medications Acetaminophen (Tylenol 325mg Tab) 650 mg PO Q6H PRN PRN Reason: temp 101 Amiodarone HCl (Cordarone) 200 mg PO DAILY [facility] Last Admin: 09/29/17 09:10 Dose: 200 mg Bismuth Subsalicylate (Pepto-Bismol) 262 mg PO TID PRN; Protocol PRN Reason: Dyspepsia Stop: 09/30/17 16:22 Last Admin: 09/28/17 17:32 Dose: 262 mg Diltiazem HCl (Cardizem Cd) 240 mg PO DAILY [facility] Last Admin: 09/28/17 10:23 Dose: 240 mg Diphenhydramine HCl (Benadryl) 25 mg PO HS PRN PRN Reason: Insomnia Last Admin: 09/29/17 00:06 Dose: 25 mg Docusate Sodium (Colace) 100 mg PO DAILY [facility] Last Admin: 09/29/17 09:13 Dose: Not Given Enoxaparin Sodium (Lovenox) 40 mg SC 0600 [facility] PRN Reason: Protocol Last Admin: 09/29/17 05:24 Dose: 40 mg Linezolid (Zyvox 600mg/300ml D5w) 600 mg in 300 mls @ 200 mls/hr IVPB 0600, 1800 [facility] PRN Reason: Protocol Stop: 10/04/17 18:01 Last Admin: 09/29/17 05:25 Dose: 200 mls/hr Cefepime HCl (Maxipime 2gm) 2 gm in 100 mls @ 100 mls/hr IVPB Q8 [facility] PRN Reason: Protocol Stop: 10/04/17 14:01 Ibuprofen (Motrin Tab) 600 mg PO Q6H PRN PRN Reason: abdominal pain Last Admin: 09/28/17 10:49 Dose: 600 mg Lisinopril (Zestril) 10 mg PO DAILY [facility] Last Admin: 09/29/17 09:11 Dose: 10 mg Nystatin (Nystop Topical Powder) 0 gm TOP BID [facility] Last Admin: 09/28/17 17:31 Dose: 1 applic Ondansetron HCl (Zofran Inj) 4 mg IVP Q6H PRN PRN Reason: Nausea/Vomiting Pantoprazole Sodium (Protonix Ec Tab) 40 mg PO 0600 [facility] Last Admin: 09/29/17 05:25 Dose: 40 mg Silver Sulfadiazine (Silvadene 1% 25 Gm) 0 gm TP DAILY [facility] Last Admin: 09/28/17 10:25 Dose: 1 gm - Labs Labs: 09/27/17 07:00 09/27/17 07:00 PT 12.7 SECONDS (9.4-12.5) H 09/24/17 08:30 INR 1.10 (0.93-1.08) H 09/24/17 08:30 APTT 31.0 Seconds (25.1-36.5) 09/24/17 08:30 - Constitutional Appears: Non-toxic, Chronically Ill - Head Exam Head Exam: NORMAL INSPECTION - Respiratory Exam Respiratory Exam: Decreased Breath Sounds - Cardiovascular Exam Cardiovascular Exam: +S1, +S2 - GI/Abdominal Exam GI & Abdominal Exam: Soft. absent: Tenderness Additional comments: dressings in place Assessment and Plan - Assessment and Plan (Free Text) Plan: Assessment Consider surgical site skin and skin structure infection S/P debridement and closure of the surgical site in this patient S/P hysterectomy, initially grew MSSA and rivera-sensitive Proteus but is now also growing Pseudomonas right breast papilloma HTN obesity with BMI 35 Plan continue Zyvox and Cefepime day 7 and will continue to monitor clinically - should target 7-10 days of antibiotics - when ready for discharge, can be changed to PO Zyvox and PO Ciprofloxacin to complete the antibiotic therapy
[2017-09-29] MEDS: diltiaZEM 240 mg/24 Hours CD Cap PO SCH (14:30)
[2017-09-29] MEDS: Cefepime IV 2 gm in NS 2 GM/100 ML BAG IVPB SCH ×3 (14:32→21:20)
[2017-09-29] MEDS: Silver Sulfadiazine 1% Cream (25 gm) TP SCH (14:36)
[2017-09-29 16:25] VITALS: PULSE 74; TEMP 98.6; O2SAT 97
--- NOTE | 2017-09-30 01:37 | PN ---
DATE: 09/29/2017 SUBJECTIVE: The patient was seen and examined on the bedside on 09/25/2017, sitting on the chair. No more diarrhea. Feeling better. Less pain in the abdomen. No nausea. No fever. No hematuria or hematochezia. No swelling of the leg. No headache. No dizziness. PHYSICAL EXAMINATION: VITAL SIGNS: Temperature 97.4, pulse 74, respiratory rate 18, blood pressure 155/79, pulse oximetry 95. HEENT: Head normocephalic, atraumatic. Eyes PERRLA. Extraocular muscles intact. Conjunctivae clear. Nose patent. NECK: Supple. No carotid bruit. No JVD. No thyromegaly. CHEST: Bilaterally symmetrical. HEART: S1 and S2 positive. LUNGS: Clear to auscultation. ABDOMEN: Soft. Bowel sounds positive. No organomegaly. EXTREMITIES: No edema. No cyanosis. NEUROLOGICAL: The patient is awake and alert. Moving all 4 extremities. No focal deficits. MEDICATIONS: Tylenol, amiodarone, Cardizem, Benadryl, Colace, Lovenox, Zyvox, Maxipime, Motrin, Zestril, nystatin powder, Zofran, pantoprazole, Silvadene. LABORATORY DATA: White blood cell is 3.8, hemoglobin 10.9, hematocrit 35.3, platelets 200. Sodium 142, potassium 3.3, BUN 8, creatinine 0.5, glucose 86. ASSESSMENT AND PLAN: Ms. Sumit Drake, 72-year-old female with leukopenia, anemia, hypokalemia, hyperchloremia. Came with surgical site skin and skin structure infection, status post debridement and closure of the surgical site in a patient with status post hysterectomy, initially grew methicillin-susceptible Staphylococcus aureus and pansensitive Proteus, but is now also growing Pseudomonas, right breast papilloma, hypertension, obesity, body mass index 35, history of diarrhea improved. Continue Zyvox and cefepime, day 7 and we will continue monitoring clinically. Should consider 7-10 days antibiotics. When ready for discharge, it can be changed to p.o. Zyvox and p.o. ciprofloxacin to complete the antibiotic therapy. Infectious Disease is on the case. Out of bed, physical therapy. Length of time discussion done with the patient and the patient's social workers. Repeat labs. We will follow up. Lucy Arechiga MD [facility] # [id number] CRIS
--- NOTE | 2017-09-30 05:24 | PN ---
DATE: 09/28/2017 SUBJECTIVE: The patient is looking comfortable. No nausea, vomiting, or diarrhea. No hematuria or hematochezia. No headache. No dizziness. Abdominal pain is getting bit better. PHYSICAL EXAMINATION: VITAL SIGNS: Temperature 98, blood pressure 112/70, respiratory rate 18. HEENT: Head normocephalic, atraumatic. Eyes, PERRLA. Extraocular muscles intact. Conjunctivae clear. Nose patent. Mucous membrane moist. NECK: Supple. No carotid bruit. No JVD. No thyromegaly. CHEST: Bilaterally symmetrical. HEART: S1 and S2 positive. LUNGS: Clear to auscultation. ABDOMEN: Soft, tender at surgical site. EXTREMITIES: No edema. No cyanosis. NEUROLOGICAL: The patient is awake and alert. Follows simple commands. MEDICATIONS: Tylenol, Pepto-Bismol, Cardizem, Benadryl, Colace, Lovenox, Zyvox, Motrin, Zestril, Zofran, Protonix. LABORATORY DATA: White blood cell is 3.8, hemoglobin 10.9, hematocrit 35.6, platelets 200,000. Sodium 142, potassium 3.3, BUN 8, creatinine 0.5, glucose 86. ASSESSMENT AND PLAN: Ms. Sumit Drake is a 72-year-old lady with leukopenia, anemia, hypokalemia, abdominal pain found better, has abdominal wound dehiscence post surgery and found to have new onset of atrial fibrillation, treated with medication, Atrial fibrillation was controlled with IV Cardizem and then switched to oral Cardizem and amiodarone. Continue present treatment. Gastrointestinal and deep venous thrombosis prophylaxis. Repeat labs. We will follow up. Lucy rAechiga MD [facility]
[2017-09-30] MEDS: Enoxaparin 40 mg Syringe SC SCH (05:47)
[2017-09-30] MEDS: Cefepime IV 2 gm in NS 2 GM/100 ML BAG IVPB SCH ×2 (05:47→14:00)
[2017-09-30] MEDS: Pantoprazole 40 mg EC Tab PO SCH (05:48)
[2017-09-30] MEDS: Linezolid 600 mg in D5W 300 ml 600 MG/300 ML BAG IVPB SCH (05:48)
--- NOTE | 2017-09-30 06:52 | CP.PCM.PN ---
Subjective - Date & Time of Evaluation Date of Evaluation: 09/30/17 Time of Evaluation: 06:35 - Subjective Subjective: Sleeping but easily awaken, no distress Reason for consultation: Continuity of care in TCU, admitted due to abdominal wound dehiscence post hysterectomy and found to have new onset atrial fibrillation, hypertension, converted and remained on Normal sinus rhythm. Seen and examined by me and Dr. Bernabe Objective - Vital Signs/Intake and Output Vital Signs (last 24 hours): Temp Pulse Resp BP Pulse Ox 98.6 F 74 18 155/73 H 97 09/29/17 16:00 09/29/17 16:00 09/29/17 16:00 09/29/17 16:00 09/29/17 16:00 - Medications Medications: Current Medications Acetaminophen (Tylenol 325mg Tab) 650 mg PO Q6H PRN PRN Reason: temp 101 Amiodarone HCl (Cordarone) 200 mg PO DAILY [facility] Last Admin: 09/29/17 09:10 Dose: 200 mg Bismuth Subsalicylate (Pepto-Bismol) 262 mg PO TID PRN; Protocol PRN Reason: Dyspepsia Stop: 09/30/17 16:22 Last Admin: 09/28/17 17:32 Dose: 262 mg Diltiazem HCl (Cardizem Cd) 240 mg PO DAILY [facility] Last Admin: 09/29/17 14:30 Dose: 240 mg Diphenhydramine HCl (Benadryl) 25 mg PO HS PRN PRN Reason: Insomnia Last Admin: 09/29/17 21:19 Dose: 25 mg Docusate Sodium (Colace) 100 mg PO DAILY [facility] Last Admin: 09/29/17 09:13 Dose: Not Given Enoxaparin Sodium (Lovenox) 40 mg SC 0600 [facility] PRN Reason: Protocol Last Admin: 09/30/17 05:47 Dose: 40 mg Linezolid (Zyvox 600mg/300ml D5w) 600 mg in 300 mls @ 200 mls/hr IVPB 0600, 1800 [facility] PRN Reason: Protocol Stop: 10/04/17 18:01 Last Admin: 09/30/17 05:48 Dose: 200 mls/hr Cefepime HCl (Maxipime 2gm) 2 gm in 100 mls @ 100 mls/hr IVPB Q8 [facility] PRN Reason: Protocol Stop: 10/04/17 14:01 Last Admin: 09/30/17 05:47 Dose: 100 mls/hr Ibuprofen (Motrin Tab) 600 mg PO Q6H PRN PRN Reason: abdominal pain Last Admin: 09/28/17 10:49 Dose: 600 mg Lisinopril (Zestril) 10 mg PO DAILY [facility] Last Admin: 09/29/17 09:11 Dose: 10 mg Nystatin (Nystop Topical Powder) 0 gm TOP BID [facility] Last Admin: 09/29/17 17:17 Dose: 1 applic Ondansetron HCl (Zofran Inj) 4 mg IVP Q6H PRN PRN Reason: Nausea/Vomiting Pantoprazole Sodium (Protonix Ec Tab) 40 mg PO 0600 [facility] Last Admin: 09/30/17 05:48 Dose: 40 mg Silver Sulfadiazine (Silvadene 1% 25 Gm) 0 gm TP DAILY [facility] Last Admin: 09/29/17 14:36 Dose: Not Given - Labs Labs: 09/27/17 07:00 09/27/17 07:00 PT 12.7 SECONDS (9.4-12.5) H 09/24/17 08:30 INR 1.10 (0.93-1.08) H 09/24/17 08:30 APTT 31.0 Seconds (25.1-36.5) 09/24/17 08:30 - Constitutional Appears: No Acute Distress - Head Exam Head Exam: NORMOCEPHALIC - Eye Exam Eye Exam: Normal appearance - ENT Exam ENT Exam: Mucous Membranes Moist - Respiratory Exam Respiratory Exam: Clear to Ausculation Bilateral, NORMAL BREATHING PATTERN - Cardiovascular Exam Cardiovascular Exam: +S1, +S2 - GI/Abdominal Exam GI & Abdominal Exam: Soft, Normal Bowel Sounds Additional comments: abdominal dressing intact - Extremities Exam Additional comments: PICC left arm 1+ pedal edema - Neurological Exam Neurological Exam: Alert, Awake, Oriented x3 - Psychiatric Exam Psychiatric exam: Normal Affect, Normal Mood - Skin Skin Exam: Dry, Intact, Warm Assessment and Plan - Assessment and Plan (Free Text) Assessment: A 72 year old female, obese who came in to the ER due to abdominal wound dehiscence post hysterectomy and found to have new onset atrial fibrillation. Patient had hysterectomy at [facility] on 09/06/17. On 09/16/17, harmony were removed. On 09/19/17, she came in to the ER due to bleeding at surgical wound and found to have wound dehiscence. Patient underwent wound debridement and closure at [facility]. Atrial fibrillation was controlled with IV cardizem then switch to oral cardizem and amiodarone. She was also started with Coumadin.Afib converted to normal sinus rhythm. History of hypertension.Transferred to TCU for reconditioning and rehab. Recent ECHO- normal LVEF 65%, MSSA and pseudomonas-wound, on IV antibiotics/ID consult. PICC inserted Plan: Physical therapy in progress IV antibiotics to be completed today then to switch to oral antibiotics per ID Replenish potassium Cardiac status stable Blood pressure and heart rate stable Continue current treatment Continue current medications For possible discharge today Follow up (out patient) in office 2-3 post discharge. Plan and treatment discussed with Dr. Bernabe
[2017-09-30] MEDS ORDERED: Potassium Chloride 40 mEq/30 ml LIQ UD PO ONE (06:59)
--- NOTE | 2017-09-30 09:08 | CP.PCM.PN ---
Subjective - Date & Time of Evaluation Date of Evaluation: 09/30/17 Time of Evaluation: 09:06 - Subjective Subjective: GENERAL SURGERY PROGRESS NOTE FOR DR. HAN Patient seen and examined at bedside this am. No acute events overnight. Pt is scheduled for d/c home today with home VNS. Pt is doing well with no complaints this am. She is tolerating her diet and ambulating. She denies fevers, chills, chest pain, SOB, abdominal pain. Objective - Vital Signs/Intake and Output Vital Signs (last 24 hours): Temp Pulse Resp BP Pulse Ox 98.6 F 74 18 155/73 H 97 09/29/17 16:00 09/29/17 16:00 09/29/17 16:00 09/29/17 16:00 09/29/17 16:00 - Medications Medications: Current Medications Acetaminophen (Tylenol 325mg Tab) 650 mg PO Q6H PRN PRN Reason: temp 101 Amiodarone HCl (Cordarone) 200 mg PO DAILY [facility] Last Admin: 09/29/17 09:10 Dose: 200 mg Bismuth Subsalicylate (Pepto-Bismol) 262 mg PO TID PRN; Protocol PRN Reason: Dyspepsia Stop: 09/30/17 16:22 Last Admin: 09/28/17 17:32 Dose: 262 mg Diltiazem HCl (Cardizem Cd) 240 mg PO DAILY [facility] Last Admin: 09/29/17 14:30 Dose: 240 mg Diphenhydramine HCl (Benadryl) 25 mg PO HS PRN PRN Reason: Insomnia Last Admin: 09/29/17 21:19 Dose: 25 mg Docusate Sodium (Colace) 100 mg PO DAILY [facility] Last Admin: 09/29/17 09:13 Dose: Not Given Enoxaparin Sodium (Lovenox) 40 mg SC 0600 [facility] PRN Reason: Protocol Last Admin: 09/30/17 05:47 Dose: 40 mg Linezolid (Zyvox 600mg/300ml D5w) 600 mg in 300 mls @ 200 mls/hr IVPB 0600, 1800 [facility] PRN Reason: Protocol Stop: 10/04/17 18:01 Last Admin: 09/30/17 05:48 Dose: 200 mls/hr Cefepime HCl (Maxipime 2gm) 2 gm in 100 mls @ 100 mls/hr IVPB Q8 [facility] PRN Reason: Protocol Stop: 10/04/17 14:01 Last Admin: 09/30/17 05:47 Dose: 100 mls/hr Ibuprofen (Motrin Tab) 600 mg PO Q6H PRN PRN Reason: abdominal pain Last Admin: 09/28/17 10:49 Dose: 600 mg Lisinopril (Zestril) 10 mg PO DAILY [facility] Last Admin: 09/29/17 09:11 Dose: 10 mg Nystatin (Nystop Topical Powder) 0 gm TOP BID [facility] Last Admin: 09/29/17 17:17 Dose: 1 applic Ondansetron HCl (Zofran Inj) 4 mg IVP Q6H PRN PRN Reason: Nausea/Vomiting Pantoprazole Sodium (Protonix Ec Tab) 40 mg PO 0600 [facility] Last Admin: 09/30/17 05:48 Dose: 40 mg Silver Sulfadiazine (Silvadene 1% 25 Gm) 0 gm TP DAILY [facility] Last Admin: 09/29/17 14:36 Dose: Not Given - Labs Labs: 09/27/17 07:00 09/30/17 08:00 PT 12.7 SECONDS (9.4-12.5) H 09/24/17 08:30 INR 1.10 (0.93-1.08) H 09/24/17 08:30 APTT 31.0 Seconds (25.1-36.5) 09/24/17 08:30 - Constitutional Appears: Well, Non-toxic, No Acute Distress - Head Exam Head Exam: NORMAL INSPECTION - Eye Exam Eye Exam: Normal appearance - Respiratory Exam Respiratory Exam: NORMAL BREATHING PATTERN - Cardiovascular Exam Cardiovascular Exam: REGULAR RHYTHM - GI/Abdominal Exam GI & Abdominal Exam: Soft, Tenderness (minimal tenderness around incision site) . absent: Distended, Firm, Guarding, Rigid Additional comments: incision site clean, dry and intact. well approximated retention sutures intact minimal erythema, no purulence noted. minimal nonmalodorous serosanguinous drainage on medipore dressing - Extremities Exam Extremities Exam: Normal Inspection. absent: Calf Tenderness - Neurological Exam Neurological Exam: Alert, Awake. absent: Altered - Psychiatric Exam Psychiatric exam: Normal Affect, Normal Mood - Skin Skin Exam: Dry, Normal Color, Warm Assessment and Plan - Assessment and Plan (Free Text) Assessment: 72 y/o F POD#11 s/p debridement and washout of dehiscent hysterectomy wound with primary closure Plan: - pt to be d/c home with home nursing services - continue daily dressing changes - f/u ID recs. pt to switch po abx - f/u cardio recs - continue pt. encourage ambulation as tolerated - discussed with Dr. Han. Further recs per him James Ferrari PGY1
[2017-09-30] MEDS: diltiaZEM 240 mg/24 Hours CD Cap PO SCH (09:58)
[2017-09-30] MEDS: Silver Sulfadiazine 1% Cream (25 gm) TP SCH (10:01)
[2017-09-30] MEDS: Nystatin 100,000 Units/gm Topical Pow(15 gm) TOP SCH (10:01)
[2017-09-30 10:04] VITALS: BP 120/80
--- NOTE | 2017-09-30 14:32 | CP.PCM.PN ---
Subjective - Date & Time of Evaluation Date of Evaluation: 09/30/17 Time of Evaluation: 12:40 - Subjective Subjective: Comfortable, improved pain in the abdomen, no fevers, no nausea. Objective - Vital Signs/Intake and Output Vital Signs (last 24 hours): Temp Pulse Resp BP Pulse Ox 98.6 F 74 18 120/80 97 09/29/17 16:00 09/30/17 09:58 09/29/17 16:00 09/30/17 10:01 09/29/17 16:00 - Medications Medications: Current Medications Acetaminophen (Tylenol 325mg Tab) 650 mg PO Q6H PRN PRN Reason: temp 101 Amiodarone HCl (Cordarone) 200 mg PO DAILY [facility] Last Admin: 09/30/17 10:00 Dose: 200 mg Bismuth Subsalicylate (Pepto-Bismol) 262 mg PO TID PRN; Protocol PRN Reason: Dyspepsia Stop: 09/30/17 16:22 Last Admin: 09/28/17 17:32 Dose: 262 mg Diltiazem HCl (Cardizem Cd) 240 mg PO DAILY [facility] Last Admin: 09/30/17 09:58 Dose: 240 mg Diphenhydramine HCl (Benadryl) 25 mg PO HS PRN PRN Reason: Insomnia Last Admin: 09/29/17 21:19 Dose: 25 mg Docusate Sodium (Colace) 100 mg PO DAILY [facility] Last Admin: 09/30/17 10:00 Dose: Not Given Enoxaparin Sodium (Lovenox) 40 mg SC 0600 [facility] PRN Reason: Protocol Last Admin: 09/30/17 05:47 Dose: 40 mg Linezolid (Zyvox 600mg/300ml D5w) 600 mg in 300 mls @ 200 mls/hr IVPB 0600, 1800 [facility] PRN Reason: Protocol Stop: 10/04/17 18:01 Last Admin: 09/30/17 05:48 Dose: 200 mls/hr Cefepime HCl (Maxipime 2gm) 2 gm in 100 mls @ 100 mls/hr IVPB Q8 [facility] PRN Reason: Protocol Stop: 10/04/17 14:01 Last Admin: 09/30/17 05:47 Dose: 100 mls/hr Ibuprofen (Motrin Tab) 600 mg PO Q6H PRN PRN Reason: abdominal pain Last Admin: 09/28/17 10:49 Dose: 600 mg Lisinopril (Zestril) 10 mg PO DAILY [facility] Last Admin: 09/30/17 10:01 Dose: 10 mg Nystatin (Nystop Topical Powder) 0 gm TOP BID [facility] Last Admin: 09/30/17 10:01 Dose: 1 applic Ondansetron HCl (Zofran Inj) 4 mg IVP Q6H PRN PRN Reason: Nausea/Vomiting Pantoprazole Sodium (Protonix Ec Tab) 40 mg PO 0600 [facility] Last Admin: 09/30/17 05:48 Dose: 40 mg Silver Sulfadiazine (Silvadene 1% 25 Gm) 0 gm TP DAILY [facility] Last Admin: 09/30/17 10:01 Dose: 1 gm - Labs Labs: 09/27/17 07:00 09/30/17 08:00 PT 12.7 SECONDS (9.4-12.5) H 09/24/17 08:30 INR 1.10 (0.93-1.08) H 09/24/17 08:30 APTT 31.0 Seconds (25.1-36.5) 09/24/17 08:30 - Constitutional Appears: Chronically Ill - Head Exam Head Exam: NORMAL INSPECTION - Respiratory Exam Respiratory Exam: Decreased Breath Sounds - Cardiovascular Exam Cardiovascular Exam: +S1, +S2 - GI/Abdominal Exam GI & Abdominal Exam: Soft. absent: Tenderness Additional comments: dressings in place Assessment and Plan - Assessment and Plan (Free Text) Assessment: Assessment Consider surgical site skin and skin structure infection S/P debridement and closure of the surgical site in this patient S/P hysterectomy, initially grew MSSA and rivera-sensitive Proteus but is now also growing Pseudomonas right breast papilloma HTN obesity with BMI 35 Plan when ready for discharge, can be changed to PO Zyvox and PO Ciprofloxacin to complete the antibiotic therapy (ie. 4 more days)
== END 2017-09-30 14:24 | disposition home health service (06) | DRG 945 ==
LOC: TRCU 15:53
PROVIDERS: ADMIT Internal Medicine; ATTEND Internal Medicine
PROC: F07L6YZ Therapeutic Exercise Treatment of Musculoskeletal System - Lower Back / Lower Extremity using Other Equipment (ICD-10-PCS; principal; 2017-09-24)
PROC: F07Z9FZ Gait Training/Functional Ambulation Treatment using Assistive, Adaptive, Supportive or Protective Equipment (ICD-10-PCS; 2017-09-26)
PROC: F07Z8ZZ Transfer Training Treatment (ICD-10-PCS; 2017-09-26)
PROC: F08Z2FZ Grooming/Personal Hygiene Treatment using Assistive, Adaptive, Supportive or Protective Equipment (ICD-10-PCS; 2017-09-26)
PROC: F08Z1FZ Dressing Techniques Treatment using Assistive, Adaptive, Supportive or Protective Equipment (ICD-10-PCS; 2017-09-26)
DX: T81.31XD Disruption of external operation (surgical) wound, not elsewhere classified, subsequent encounter (principal); Z68.43 Body mass index [BMI] 50.0-59.9, adult; I48.91 Unspecified atrial fibrillation; E87.6 Hypokalemia; E87.8 Other disorders of electrolyte and fluid balance, not elsewhere classified; R19.7 Diarrhea, unspecified; I10 Essential (primary) hypertension; E66.01 Morbid (severe) obesity due to excess calories; D64.9 Anemia, unspecified; D24.1 Benign neoplasm of right breast; B95.61 Methicillin susceptible Staphylococcus aureus infection as the cause of diseases classified elsewhere; B96.4 Proteus (mirabilis) (morganii) as the cause of diseases classified elsewhere; B96.5 Pseudomonas (aeruginosa) (mallei) (pseudomallei) as the cause of diseases classified elsewhere; Z90.710 Acquired absence of both cervix and uterus; Z87.891 Personal history of nicotine dependence

== ENCOUNTER 2018-07-12 10:19 | Outpatient (CLI) | payer MEDICARE, BC | END 2018-07-12 10:20 | disposition home or self-care (01) | LOC: RAD 10:19 ==